=== PATIENT | male | born 1935 | race Caucasian/White ===

== ENCOUNTER 2018-02-13 11:34 | Outpatient (CLI) | payer OTHER ==
--- NOTE | 2018-02-13 15:02 | CT ---
EXAM: CT head without contrast HISTORY: Headache with history of stroke COMPARISON: None TECHNIQUE: Serial axial images of the brain were obtained from the skull base to the vertex without IV contrast. FINDINGS: The ventricles, cisterns and sulci demonstrate moderate generalized volume loss. The carbajal- white matter junction is maintained. There is no acute loss of the carbajal-white matter differentiation identified. There is scattered low attenuation in the periventricular white matter.No midline shift or mass is identified. There is no abnormal intra or extra-axial fluid collection. The paranasal s inuses and mastoid air cells are clear. The osseous calvarium is intact. IMPRESSION: 1. No acute intracranial abnormality or hemorrhage. 2. Moderate generalized volume loss and scattered microangiopathy. If further evaluation is clinically indicated, MRI may be obtained.
== END 2018-02-13 11:35 | disposition home or self-care (01) ==
LOC: RAD 11:34
PROVIDERS: ATTEND Internal Medicine
DX: R51 Headache (principal); Z86.73 Personal history of transient ischemic attack (TIA), and cerebral infarction without residual deficits

== ENCOUNTER 2018-03-01 11:52 | Outpatient (CLI) | payer OTHER ==
--- NOTE | 2018-03-01 14:05 | MRI ---
EXAM: MRI brain without and with IV contrast. DATE: 03/01/2018. HISTORY: Abnormal head CT. Headaches. TECHNIQUE: Sagittal T1W pre and postcontrast, axial T2W, axial FLAIR, axial T1W pre and postcontrast , axial DWI, coronal T1W postcontrast, and coronal T2W GRE sequences of the brain were obtained using 1.2 Ning magnet. CONTRAST: Omniscan - 15 ml IV. COMPARISON: CT head 13 February 2018. FINDINGS: The ventricles, cisterns, sulci and subarachnoid spaces are commensurately enlarged due to involutional change. No midline shift, mass effect or abnormal extra-axial fluid collection is appa rent. No acute infarct, hemorrhage or enhancing neoplasm is identified. No abnormal contrast enhanc ement is identified in the brain, meninges or dura. Narrow, confluent rim of T2W/FLAIR hyperintensit y is observed in the white matter abutting each lateral ventricle. The carbajal - white matter different iation is normal. Punctate areas of T2W GRE dark signal within each basal ganglia (right greater michelle n left) appear benign. No migration or diverticulation abnormality is identified. The amygdala, hip pocampus, and parahippocampal gyri are similar bilaterally. The 7th/8th cranial nerve complexes, cer ebellopontine angles, brainstem, and visible cervical spinal cord are normal. There is no cerebellar tonsillar ectopia. The pituitary gland is small in size, with CSF filling part of the pituitary fos sa. Corpus callosum is normal in size and configuration. Flow voids are present in the major intrac ranial arteries and in the dural venous sinuses. No aneurysm, AVM or dural venous sinus thrombosis i s apparent. Appearance of the lens of the left eye suggests prior cataract surgery. No other orbit abnormality is identified. A small number of inferior right mastoid air cells reveal a reticular pat tern of T2W bright, T1W intermediate signal without abnormal enhancement. Left mastoid air cells are unremarkable. There is no acute sinusitis. No neck mass or lymphadenopathy is detected. No calvar ial neoplasm or acute fracture is evident. IMPRESSIONS: 1. No acute infarct, hemorrhage, enhancing neoplasm or hydrocephalus. 2. 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 3. Minor, benign bilateral basal ganglia mineral deposition. 4. Mild/moderate cerebral and minor cerebellar atrophy. 5. Small pituitary gland - partially empty sella. 6. Minor right mastoid air cell mucosal disease.
== END 2018-03-01 11:53 | disposition home or self-care (01) ==
LOC: RAD 11:52
PROVIDERS: ATTEND Internal Medicine
DX: R93.0 Abnormal findings on diagnostic imaging of skull and head, not elsewhere classified (principal)

== ENCOUNTER 2021-10-04 14:47 | Observation (INO) ==
[2021-10-04] MEDS ORDERED: TYLENOL PO STA (15:08)
[2021-10-04] MEDS ORDERED: BOOSTRIX IM ONE (15:09)
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
[2021-10-04 15:34] LABS: BASOPHILS % (AUTO) 0.5 % (0.0-3.0); EOSINOPHILS # (AUTO) 0.1 K/ul (0.0-0.7); EOSINOPHILS % (AUTO) 1.1 % (0.0-7.0); HEMATOCRIT 41.3 % (42.0-52.0); HEMOGLOBIN 13.8 g/dl (14.0-18.0); IMMATURE GRANULOCYTE % (AUTO) 0.2 % (0.0-5.0); LYMPHOCYTES # (AUTO) 1.5 K/uL (0.60-3.4); LYMPHOCYTES % (AUTO) 23.3 (10.0-50.0); MEAN CORPUSCULAR HEMOGLOBIN 31.2 pg (27.0-31.0); MEAN CORPUSCULAR HGB CONC 33.4 (31.8-35.4); MEAN CORPUSCULAR VOLUME 93.4 fl (80.0-94.0); MONOCYTES # (AUTO) 0.6 K/uL (0.4-2.0); MONOCYTES % (AUTO) 10.3 (0-10); NEUTROPHILS % (AUTO) 64.6 % (42.2-75.2); PLATELET COUNT 122 10^3/uL (140-440); RDW COEFFICIENT OF VARIATION 13.2 % (11.6-14.8); RED BLOOD COUNT 4.42 10^6/ul (4.70-6.10); WHITE BLOOD COUNT 6.22 K/ul (4.2-10.2)
[2021-10-04 15:46] LABS: ALANINE AMINOTRANSFERASE 47.9 U/L (0-50); ALBUMIN 4.31 g/dL (3.5-5.0); ALKALINE PHOSPHATASE 92.2 U/L (56-119); ASPARTATE AMINO TRANSFERASE 45.8 U/L (17-59); BILIRUBIN,TOTAL 0.82 mg/dL (0.2-1.3); BLOOD UREA NITROGEN 28.9 mg/dL (9-20); CALCIUM 9.09 mg/dL (8.4-10.2); CHLORIDE 103.3 mmol/L (98-107); CREATININE 1.83 mg/dL (0.60-1.10); GLUCOSE 111.6 mg/dL (74-106); SODIUM 135.4 mmol/L (134.5-145); TOTAL PROTEIN 7.73 g/dL (6.3-8.2)
[2021-10-04 15:59] LABS: PROTHROMBIN TIME 30.7 SEC (9.3-11.0)
--- NOTE | 2021-10-04 16:10 | DI ---
EXAM: Radiographs, left elbow HISTORY: Left elbow injury. COMPARISON: None. TECHNIQUE: Three views. FINDINGS: Bone mineralization normal. No fracture or dislocation. Joint spaces maintained although there is mild marginal osteophyte formation at the elbow. Mild spurring off the medial humeral epic ondyle. There is a tiny olecranon spur. No erosions. No joint effusion or other focal soft tissue abnormality. IMPRESSION: No fracture or dislocation.
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
[2021-10-04] MEDS ORDERED: TYLENOL PO PRN (17:29)
[2021-10-04] MEDS ORDERED: SODIUM CHLORIDE 1,000 ML IV SCH (17:30)
[2021-10-04] MEDS ORDERED: NORCO 5-325 PO PRN (17:31)
[2021-10-04 17:54] LABS: BILIRUBIN,URINE Negative (NEGATIVE); CLARITY,URINE Clear (CLEAR); COLOR,URINE Yellow (YELLOW); GLUCOSE, URINE (UA) Negative (NEGATIVE); KETONES,URINE Negative (NEGATIVE); LEUKOCYTE ESTERASE ,URINE Negative (NEGATIVE); NITRITE,URINE Negative (NEGATIVE); PH,URINE 5.5 (5-9); PROTEIN,URINE Negative (NEGATIVE); URINE, BLOOD 1+ (NEGATIVE); UROBILINOGEN,URINE 0.2 (0.2)
[2021-10-04] MEDS ORDERED: LANOXIN PO SCH (18:00)
[2021-10-04 18:09] LABS: OPIATE SCREEN,URINE POSITIVE (NEGATIVE)
[2021-10-04 18:10] LABS: AMPHETAMINE SCREEN,URINE NEGATIVE (NEGATIVE); BARBITURATE SCREEN,URINE NEGATIVE (NEGATIVE); BENZODIAZEPINES SCREEN,URINE NEGATIVE (NEGATIVE); CANNABINOID SCREEN,URINE NEGATIVE (NEGATIVE); COCAIN SCREEN,URINE NEGATIVE (NEGATIVE); METHADONE URINE SCREEN NEGATIVE (NEGATIVE); METHAMPHETAMINES SCREEN,URINE NEGATIVE (NEGATIVE); OXYCODONE URINE SCREEN NEGATIVE (NEGATIVE); PHENCYCLIDINE SCREEN,URINE NEGATIVE (NEGATIVE); PROPOXYPHENE URINE SCREEN NEGATIVE (NEGATIVE); TRICYCLIC ANTIDEPRESSANTS URIN NEGATIVE (NEGATIVE)
[2021-10-04 18:12] LABS: URINE RBC, MICROSCOPIC 0-2 (0-2)
[2021-10-04 18:13] LABS: MUCUS,URINE 1+ (NOT PRESENT)
[2021-10-04] MEDS ORDERED: NORVASC PO SCH (21:00)
[2021-10-04] MEDS ORDERED: FLOMAX PO SCH (21:00)
[2021-10-04] MEDS ORDERED: LIPITOR PO SCH (21:00)
[2021-10-04] MEDS ORDERED: NEURONTIN PO SCH (21:00)
[2021-10-04 21:38] VITALS: BMI 25.0
[2021-10-04] MEDS: SODIUM CHLORIDE 1,000 ML IV SCH (22:11)
[2021-10-05 05:16] LABS: BASOPHILS % (AUTO) 0.4 % (0.0-3.0); EOSINOPHILS # (AUTO) 0.1 K/ul (0.0-0.7); EOSINOPHILS % (AUTO) 1.3 % (0.0-7.0); HEMATOCRIT 35.5 % (42.0-52.0); HEMOGLOBIN 12.1 g/dl (14.0-18.0); IMMATURE GRANULOCYTE % (AUTO) 0.2 % (0.0-5.0); LYMPHOCYTES # (AUTO) 1.4 K/uL (0.60-3.4); LYMPHOCYTES % (AUTO) 26.3 (10.0-50.0); MEAN CORPUSCULAR HEMOGLOBIN 31.7 pg (27.0-31.0); MEAN CORPUSCULAR HGB CONC 34.1 (31.8-35.4); MEAN CORPUSCULAR VOLUME 92.9 fl (80.0-94.0); MONOCYTES # (AUTO) 0.6 K/uL (0.4-2.0); MONOCYTES % (AUTO) 10.8 (0-10); NEUTROPHILS # (AUTO) 3.3 K/ul (2.0-6.9); PLATELET COUNT 102 10^3/uL (140-440); RDW COEFFICIENT OF VARIATION 13.2 % (11.6-14.8); RED BLOOD COUNT 3.82 10^6/ul (4.70-6.10); WHITE BLOOD COUNT 5.36 K/ul (4.2-10.2)
[2021-10-05 05:25] LABS: PROTHROMBIN TIME 23.5 SEC (9.3-11.0)
[2021-10-05 05:34] VITALS: BP 135/76; TEMP 97.7
[2021-10-05 05:55] LABS: ALANINE AMINOTRANSFERASE 37.3 U/L (0-50); ALBUMIN 3.66 g/dL (3.5-5.0); ALKALINE PHOSPHATASE 60.2 U/L (56-119); BILIRUBIN,TOTAL 1.23 mg/dL (0.2-1.3); BLOOD UREA NITROGEN 23.2 mg/dL (9-20); CALCIUM 8.23 mg/dL (8.4-10.2); CARBON DIOXIDE 19.8 mmol/L (22-30.0); CHLORIDE 109.6 mmol/L (98-107); CREATININE 1.5 mg/dL (0.60-1.10); POTASSIUM 4.47 mmol/L (3.5-5.1); TOTAL PROTEIN 6.43 g/dL (6.3-8.2)
[2021-10-05] MEDS: SODIUM CHLORIDE 1,000 ML IV SCH ×3 (08:50→09:52)
[2021-10-05] MEDS ORDERED: LANOXIN PO SCH (09:00)
[2021-10-05] MEDS ORDERED: COUMADIN PO SCH ×2 (09:00→17:00)
[2021-10-05] MEDS ORDERED: LOTENSIN PO SCH (09:00)
[2021-10-05] MEDS ORDERED: PROSCAR PO SCH (09:00)
--- NOTE | 2021-10-05 09:32 | PCM.PROG ---
Attending Provider: ATTENDING PROVIDER: Dr. SERGO AGUDELO This patient is seen with Lia Wolfe, Nurse Practitioner. DATE OF SERVICE: 10/05/21 SUBJECTIVE: This 85 year old /WHITE M was hospitalized 10/04/21. Denies any headache or change in vision. CT brain was normal. Minor abrasion left elbow. INR 2.3. Renal function stable. REVIEW OF SYSTEMS: CONSTITUTIONAL: No night sweats. No fatigue, malaise, lethargy. No fever or chills. HEENT: Eyes: No visual changes. No eye pain. No eye discharge. ENT: No runny nose. No epistaxis. No sinus pain. No odynophagia. No congestion. RESPIRATORY: No cough, no congestion. No hemoptysis. No shortness of breath. CARDIOVASCULAR: No angina symptoms. No CHF symptoms. No atypical chest pain for CAD. No palpitations. No orthopnea.. GASTROINTESTINAL: No abdominal pain. No nausea or vomiting. No diarrhea or constipation. No hematemesis. No hematochezia. GENITOURINARY: No urgency. No frequency. No dysuria. No hematuria. No obstr uctive symptoms. No discharge. No pain. No significant abnormal bleeding. MUSCULOSKELETAL: No musculoskeletal pain; no joint swelling. NEUROLOGICAL: Awake, alert, oriented to time, place and person. No headache. No neck pain. No syncope. No seizures. No dizziness. PSYCHIATRIC: Not anxious. No depression. No suicidal thoughts. No homicidal thoughts. SKIN: No rash. Bruising on scalp and left elbow. ENDOCRINE: No unexplained weight loss. No weight gain. HEMATOLOGIC/LYMPHATIC: No anemia. No purpura. No petechiae. No prolonged or excessive bleeding. No palpable lymph nodes. PHYSICAL EXAMINATION: GENERAL: The patient is awake, alert and oriented, sitting in bed in no distress. VITAL SIGNS: Temperature 97.7 F, Pulse 92, Respiratory Rate 16, BP 135/76, Pulse Ox 99% HEENT: Head normocephalic, atraumatic. Eyes: Extraocular muscles are intact. Pupils are equal, round and reactive to light and accommodation. Ears: No lesions. Nose appeared normal. Throat: No exudate or erythema. NECK: Supple. No JVD, no carotid bruit. No lymphadenopathy or thyromegaly. LUNGS: Diminished breath sounds. Clear to auscultation. Percussion note normal. Chest symmetrical. HEART: S1, S2, no S3. No murmurs. No cyanosis or clubbing. No ascites. Pulses: Dorsalis pedis and posterior tibial pulses +1 to +2 both sides. ABDOMEN: Soft. Non-tender. Bowel sounds active. No CVA tenderness. No mass felt. EXTREMITIES: No edema. Full range of motion of all extremities, equal. NEUROLOGIC: No focal deficit. Cranial nerves II through XII are grossly intact. No headache. No double vision. SKIN: Not dry. Intact. Turgor-normal. Hematoma back of scalp about 2 inches. Small superficial abrasion left elbow, no signs of infection. LYMPHATIC: No palpable lymph nodes/no lymphedema. MUSCULOSKELETAL: Normal joints with no swelling. Muscle tone is normal. LAB REVIEW: 10/05/21 05:00 10/05/21 05:00 10/05/21 05:00: Troponin I 0.026 10/05/21 05:00: Sodium 134.0 L, Potassium 4.47, Chloride 109.6 H, Carbon Dioxide 19.8 L D, Anion Gap 9.07, BUN 23.2 H, Creatinine 1.50 H, Estimated GFR (MDRD) 45.00, BUN/Creatinine Ratio 15.46, Glucose 111.0 H, Calcium 8.23 L, Total Bilirubin 1.23, AST 34.0, ALT 37.3, Alkaline Phosphatase 60.2 D, Total Protein 6.43, Albumin 3.66, Globulin 2.77, Albumin/Globulin Ratio 1.32 10/05/21 05:00: PT 23.5 H D, INR 2.35 10/05/21 05:00: WBC 5.36, RBC 3.82 L, Hgb 12.1 L, Hct 35.5 L, MCV 92.9, MCH 31.7 H, MCHC 34.1, RDW Coeff of Alcides 13.2, Plt Count 102 L, Immature Gran % (Auto) 0.2, Neut % (Auto) 61.0, Lymph % (Auto) 26.3, [place] % (Auto) 10.8 H, Eos % (Auto) 1.3, Baso % (Auto) 0.4, Neut # (Auto) 3.3, Lymph # (Auto) 1.4, [place] # (Auto) 0.6, Eos # (Auto) 0.1, Baso # (Auto) 0.0, Immature Gran # (Auto) 0.0 10/04/21 23:33: Troponin I 0.027 10/04/21 17:32: Urine Opiates Screen Positive H, Ur Oxycodone Screen Negative, Urine Methadone Screen Negative, Ur Propoxyphene Screen Negative, Ur Barbiturates Screen Negative, U Tricyclic Antidepress Negative, Ur Phencyclidine Scrn Negative, Ur Amphetamine Screen Negative, U Methamphetamines Scrn Negative, U Benzodiazepines Scrn Negative, Urine Cocaine Screen Negative, U Cannabinoids Screen Negative 10/04/21 17:32: Urine Color Yellow, Urine Clarity Clear, Urine pH 5.5, Ur Specific [place] 1.020, Urine Protein Negative, Urine Glucose (UA) Negative, Urine Ketones Negative, Urine Blood 1+ H, Urine Nitrite Negative, Urine Bilirubin Negative, Urine Urobilinogen 0.2, Ur Leukocyte Esterase Negative, Urine Microscopic RBC 0-2, Urine Microscopic WBC 5-10, Ur Squamous Epith Cells 5-10, Hyaline Casts 5-10, Urine Mucus 1+ 10/04/21 17:24: SARS CoV-2 RNA Rapid SREE Negative 10/04/21 15:24: Digoxin 0.61 L 10/04/21 15:24: Troponin I 0.020 10/04/21 15:24: Sodium 135.4, Potassium 5.00, Chloride 103.3, Carbon Dioxide 27.0, Anion Gap 10.10, BUN 28.9 H, Creatinine 1.83 H, Estimated GFR (MDRD) 36.00, BUN/Creatinine Ratio 15.79, Glucose 111.6 H, Calcium 9.09, Total Bilirubin 0.82, AST 45.8, ALT 47.9, Alkaline Phosphatase 92.2, Total Protein 7.73, Albumin 4.31, Globulin 3.42, Albumin/Globulin Ratio 1.26 10/04/21 15:24: PT 30.7 H, INR 3.11 10/04/21 15:24: WBC 6.22, RBC 4.42 L, Hgb 13.8 L, Hct 41.3 L, MCV 93.4, MCH 31.2 H, MCHC 33.4, RDW Coeff of Alcides 13.2, Plt Count 122 L, Immature Gran % (Auto) 0.2, Neut % (Auto) 64.6, Lymph % (Auto) 23.3, [place] % (Auto) 10.3 H, Eos % (Auto) 1.1, Baso % (Auto) 0.5, Neut # (Auto) 4.0, Lymph # (Auto) 1.5, [place] # (Auto) 0.6, Eos # (Auto) 0.1, Baso # (Auto) 0.0, Immature Gran # (Auto) 0.0 ASSESSMENT: Please see below. 1. Status post fall 2. Head injury 3. Left elbow abrasions 4. Chronic kidney disease 5. Atrial fibrillation on Coumadin PLAN: 1. Resume home medications 2. The patient would like to be discharged. We will discharge home with no changes. Plan and coordination of the patient's care discussed in the presence of Stamp Presser and nurse. SCRIBED BY: Shoshana ENNIS scribed while in presence of service performed by Dr. Agudelo/Lia Wolfe APRN on 10/05/21 ([id number])
[2021-10-05] MEDS ORDERED: SODIUM CHLORIDE 1,000 ML IV SCH ×3 (10:00)
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
--- NOTE | 2021-10-17 14:45 | PN ---
DATE OF SERVICE: 10/05/21 SUBJECTIVE: The patient was seen and examined with the Nurse Practitioner. The patient's condition is stable. Neurological status is stable. He is up and about. Oriented to time, place and person. INR is 2.2. The patient is going to be discharged home. Again the patient is high risk for fall. Family was explained about the patient's fall risk and how to avoid them. He was also explained about this. The patient is going to be discharged home. This is 24 hour observation. CONDITION: Stable. TIME SPENT: More than 30 minutes. Plan and coordination of the patient's care discussed in the presence of nurse. MARTINE
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
== END 2021-10-05 10:40 | disposition home or self-care (01) ==
LOC: ED 14:47 → MEDSURG A 19:36 → INTOOBSV 19:36 → MEDSURG A 20:45
PROVIDERS: ADMIT Internal Medicine; ATTEND Internal Medicine
DX: N17.9 Acute kidney failure, unspecified; Z51.81 Encounter for therapeutic drug level monitoring; Z79.899 Other long term (current) drug therapy; S00.01XA Abrasion of scalp, initial encounter; S50.312A Abrasion of left elbow, initial encounter; V18.0XXA Pedal cycle driver injured in noncollision transport accident in nontraffic accident, initial encounter; S00.90XA Unspecified superficial injury of unspecified part of head, initial encounter; Z79.01 Long term (current) use of anticoagulants; Y92.9 Unspecified place or not applicable; N18.30 Chronic kidney disease, stage 3 unspecified; Z20.822 Contact with and (suspected) exposure to COVID-19; I10 Essential (primary) hypertension; R79.1 Abnormal coagulation profile; R40.2411 Glasgow coma scale score 13-15, in the field [EMT or ambulance]; S20.411A Abrasion of right back wall of thorax, initial encounter; I48.21 Permanent atrial fibrillation; Y99.9 Unspecified external cause status

== ENCOUNTER 2023-06-21 09:38 | Inpatient (IN) ==
--- NOTE | 2023-06-21 10:25 | ED.PDOC ---
General ED Provider: Dr. SIMON BARRERA MD Chief Complaint: Weakness Stated Complaint: Patient is weak. He had a ground-level fall. Was unable to get up. Time Seen by Provider: 06/21/23 10:14 Information Source: Patient and Family Exam Limitations: Clinical condition Primary Care Provider: SERGO AGUDELO MD Nursing and Triage Documentation Reviewed and Agree: Yes Does Patient Take Opioids?: No Is Patient Opioid Naive?: Yes What is Opioid Naive?: *Opioid Naive implies the patient is not already taking opioids or not chronically receiving opioids on a daily basis. *PRN dosing is not "usually" associated with tolerance. *Patients are at higher risk of over-sedation and aspiration. Is Patient Opioid Tolerant?: No What is Opioid Tolerant?: *Opioid Tolerance implies less than the expected response to an opioid. *Acquired tolerance is defined by the patient taking 60mg of oral morphine daily (or equianalgesic dose of another opioid) for 1 week or more. *Often associated with chronic pain. *May take more than usual dose to achieve desired pain control. Cardiovascular Complaint Exam Hypertension Complaint/Exam Onset/Duration: Hypotension Symptoms Are: Still present Timing: Intermittent Reported B/P Prior to Arrival: Patient had a ground-level fall was unable to get up. He was weak. Aggravating: Reports None Alleviating: Reports None Associated Signs and Symptoms: Reports Headache and Weakness (The patient has underlying hypertension. However his blood pressure systolic now is 74.) Related History: Reports Other (He has had falling in the past but normally is able to cut his own grass.) Cardiac Risk Factors: Reports Hypertension Differential Diagnoses: Cerebral Bleed Review of Systems Review Of Systems Constitutional: Reports Malaise and Weakness Respiratory: Reports No symptoms Cardiac: Reports No symptoms GI: Reports No symptoms : Reports No symptoms Neurological: Reports Cognitive dysfunction and Headache All Other Systems: Reviewed and Negative [facility] Medical History Enlarged prostate N40.0 - Benign prostatic hyperplasia without lower urinary tract symptoms (ICD-10) Skin cancer C44.90 - Unspecified malignant neoplasm of skin, unspecified (ICD-10) Cataract H26.9 - Unspecified cataract (ICD-10) Family History FATHER Lung cancer BROTHER Prostate cancer Social History Smoking and tobacco status: Former smoker Passive smoking exposure: Yes How long ago did patient quit smokin years Second hand smoke exposure: Yes Smoking risk assessment performed: Yes Alcohol intake: former Counseling given: No Substance use type: does not use Special olya needs: No Agree to transfusion: Yes Adopted: No Caregiver/support person: No Foster care: No Household members: none Housing: house Lives independently: Yes Daycare: no daycare service: No correction: No History of recent travel: No Do you think of yourself as: straight/heterosexual Current gender identity: male Seatbelt use: always Drives intoxicated or rides with intoxicated company driver: No Water heater temperature set < 120 degrees: Yes Working smoke detector in home: Yes Fire extinguisher in home: Yes Carbon monoxide detector in home: Yes Surgical History History of cholecystectomy Z90.49 - Acquired absence of other specified parts of digestive tract (ICD- 10) Physical Exam Physical Exam Appearance: Reports Ill-appearing Ill-appearing: Moderate Pain Distress: Mild Eyes: Reports SUSHILA Respiratory: Reports Airway patent Cardiovascular: Reports RRR and Pulses normal GI/: Reports Soft Musculoskeletal: Reports Limited strength Skin: Reports Warm and Dry Interpretation EKG Interpretation EKG Interpretation By: ED Physician (EKG interpreted by me.) Rate: Normal Rhythm: Other (Atrial fibrillation irregular rate of 63.) Ectopy: None ST Segment: Normal Interpretation: No ST segment changes. Re-Evaluation Re-Evaluation Appearance: NAD Skin: Warm and Dry Neuro: Alert and Oriented X3 CV: RRR Re-Evaluation Appearance: NAD Skin: Warm and Dry Neuro: Alert and Oriented X3 Additional Comments: A-Fib with controlled rate. Physician Notification Case Discussed Physician Notified: MARIA A Rader Time of Notification: 12:00 Endorsed To/Discussed With: ANA MENDEZ Time of Discussion: 12:12 Admit/Transition Orders Entered by ED Provider: Yes Admit To: Inpatient, SCU and Other (TElemetry) Critical Care Note Critical Care Note Total Critical Care Time (mins): 90 (hypotension, transfering patient, and eventually admitting patient to telemetry.) Comments: Pt is aware that he needs a higher level of care. Pt is very aware of the risks of not being amenable to transfer to other hospital w nephrology services. He refuses to go outside of the immediate area. Course Course 06/23/23 04:58 06/23/23 04:58 Orders, Labs, Meds: Lab Review 06/21/23 06/21/23 06/21/23 10:32 10:34 10:35 WBC 7.23 RBC 3.31 L Hgb 10.4 L Hct 33.3 L MCV 100.6 H MCH 31.4 H MCHC 31.2 L RDW Coeff of Alcides 14.0 Plt Count 218 Immature Gran % (Auto) 0.6 Neut % (Auto) 72.9 Lymph % (Auto) 15.9 [place] % (Auto) 9.7 Eos % (Auto) 0.3 Baso % (Auto) 0.6 Neut # (Auto) 5.3 Lymph # (Auto) 1.2 [place] # (Auto) 0.7 Eos # (Auto) 0.0 Baso # (Auto) 0.0 Immature Gran # (Auto) 0.0 PT 47.9 H INR 4.90 H* Sodium 133.6 L Potassium 5.19 H Chloride 98.3 Carbon Dioxide 21.5 L Anion Gap 18.99 BUN 70.3 H* Creatinine 7.51 H* Estimated GFR (MDRD) 7.00 BUN/Creatinine Ratio 9.36 Glucose 161.7 H Calcium 8.85 Total Bilirubin 0.77 AST 46.2 ALT 51.8 H Alkaline Phosphatase 80.4 Total Creatine Kinase 153.8 CK-MB (CK-2) 4.070 H CK-MB (CK-2) % 2.6400 Troponin I 0.076 Total Protein 7.58 Albumin 3.87 Globulin 3.71 Albumin/Globulin Ratio 1.04 SARS CoV-2 RNA Rapid SREE Negative Orders Category Date Time Status ADMIT PATIENT INPATIENT .TO [facility] (MONITORED BED) ADMISSION 06/21/23 12:37 Completed EKG-(ED ONLY) Stat CARDIO 06/21/23 10:20 Completed TELEMETRY MONITORING TELE CARE 06/21/23 12:37 Completed CBC W/ AUTO DIFF Stat LAB 06/21/23 10:32 Completed COMPREHENSIVE METABOLIC PANEL Stat LAB 06/21/23 10:32 Completed COVID [SARS COV-2 RNA RAPID SREE] Stat LAB 06/21/23 10:35 Completed CREATINE KINASE Stat LAB 06/21/23 10:32 Completed TROPONIN I Stat LAB 06/21/23 10:32 Completed Sodium Chloride 0.9% [Sodium Chloride] 1,000 ml Meds 06/21/23 10:20 Discontinued IV BOLUS CHEST, 1V AP ONLY Stat RADS 06/21/23 10:[address] ABDOMEN/PELVIS WO CONTRAST Stat RADS 06/21/23 12:[address] HEAD W/O CONTRAST Stat RADS 06/21/23 10:37 Completed Medications Discontinued Medications Generic Name Dose Route Start Last Admin Trade Name Freq PRN Reason Stop Dose Admin Acetaminophen 650 mg 06/21/23 13:35 06/21/23 20:18 Acetaminophen 325 Mg Tablet PO 650 mg Q4H PRN Administration Mild Pain Hydrocodone Bitart/Acetaminophen 1 tab 06/22/23 09:55 06/24/23 04:59 Hydrocodone Bit/Acetaminophen 5/325 Mg Tablet PO 1 tab Q6HR PRN Administration Pain Atorvastatin Calcium 20 mg 06/21/23 21:00 06/23/23 20:08 Atorvastatin Calcium 20 Mg Tablet PO 20 mg BEDTIME NILES Administration Digoxin 125 mcg 06/21/23 15:30 06/22/23 14:30 Digoxin 125 Mcg Tablet PO 125 mcg [id number] NILES Administration Docusate Sodium 100 mg 06/23/23 11:01 06/23/23 13:43 Docusate Sodium 100 Mg Capsule PO 100 mg BID PRN Administration Constipation Donepezil HCl 10 mg 06/21/23 17:00 06/23/23 17:59 Donepezil Hcl 10 Mg Tablet PO 10 mg QPM NILES Administration Escitalopram Oxalate 20 mg 06/22/23 09:00 06/24/23 08:00 Escitalopram Oxalate 10 Mg Tablet PO 20 mg DAILY NILES Administration Gabapentin 300 mg 06/21/23 17:00 06/23/23 17:59 Gabapentin 300 Mg Capsule PO 300 mg QPM NILES Administration Sodium Chloride 1,000 mls @ 1,000 mls/hr 06/21/23 10:20 06/21/23 16:03 Sodium Chloride IV 06/21/23 11:19 Infused BOLUS ONE Infusion Sodium Chloride 1,000 mls @ 100 mls/hr 06/21/23 14:00 06/21/23 16:04 Sodium Chloride IV Not Given .Q10H NILES Sodium Chloride 1,000 mls @ 75 mls/hr 06/21/23 15:09 06/23/23 12:40 Sodium Chloride IV Infused .[id number] NILES Infusion Insulin Human Lispro 0 unit 06/21/23 15:24 Insulin Lispro 100 Unit/Ml Vial SUBCUT PRN PRN Hyperglycemia Protocol Memantine 10 mg 06/21/23 21:00 06/23/23 20:08 Memantine Hcl 10 Mg Tablet PO 10 mg BEDTIME NILES Administration Ondansetron HCl 4 mg 06/21/23 13:35 Ondansetron Hcl/Pf 4 Mg/2 Ml Sdv IVP Q6H PRN Nausea / Vomiting Polyethylene Glycol 17 gm 06/22/23 19:12 Polyethylene Glycol 17 Gm Powd.Pack PO DAILY PRN Constipation Vital Signs: Temp Pulse Resp BP Pulse Ox 06/21/23 09:41 97.7 F 60 18 72/49 L 95 GERONIMO Risk Score GERONIMO Risk Score: Risk Score Odds of by 30D 0 0.1 (0.1-0.2) 1 0.3 (0.2-0.3) 2 0.4 (0.3-0.5) 3 0.7 (0.6-0.9) 4 1.2 (1.0-1.5) 5 2.2 (1.9-2.6) 6 3.0 (2.5-3.6) 7 4.8 (3.8-6.1) Physician Progress Note: [500cc/hr of NS SBP went from 74 to 89. Decreased fluids after 500cc to 125cc/hr. patient has renal failure. He is admitted for observation.] Discharge Plan Discharge Patient Disposition: ADMITTED INPATIENT Discharge Problem: Acute kidney failure Did you review [place] [employer]U[place] for ALL controlled substances?: Not Applicable ED Provider: SIMON BARRERA Condition: Poor
[2023-06-21 10:37] LABS: BASOPHILS % (AUTO) 0.6 % (0.0-3.0); EOSINOPHILS % (AUTO) 0.3 % (0.0-7.0); HEMATOCRIT 33.3 % (42.0-52.0); HEMOGLOBIN 10.4 g/dl (14.0-18.0); IMMATURE GRANULOCYTE % (AUTO) 0.6 % (0.0-5.0); LYMPHOCYTES # (AUTO) 1.2 K/uL (0.60-3.4); LYMPHOCYTES % (AUTO) 15.9 (10.0-50.0); MEAN CORPUSCULAR HEMOGLOBIN 31.4 pg (27.0-31.0); MEAN CORPUSCULAR HGB CONC 31.2 (31.8-35.4); MEAN CORPUSCULAR VOLUME 100.6 fl (80.0-94.0); MONOCYTES # (AUTO) 0.7 K/uL (0.4-2.0); MONOCYTES % (AUTO) 9.7 (0-10); NEUTROPHILS # (AUTO) 5.3 K/ul (2.0-6.9); NEUTROPHILS % (AUTO) 72.9 % (42.2-75.2); PLATELET COUNT 218 10^3/uL (140-440); RED BLOOD COUNT 3.31 10^6/ul (4.70-6.10); WHITE BLOOD COUNT 7.23 K/ul (4.2-10.2)
[2023-06-21 10:49] LABS: ALANINE AMINOTRANSFERASE 51.8 U/L (0-50); ALBUMIN 3.87 g/dL (3.5-5.0); ALKALINE PHOSPHATASE 80.4 U/L (56-119); ASPARTATE AMINO TRANSFERASE 46.2 U/L (17-59); BILIRUBIN,TOTAL 0.77 mg/dL (0.2-1.3); CALCIUM 8.85 mg/dL (8.4-10.2); CARBON DIOXIDE 21.5 mmol/L (22-30.0); CHLORIDE 98.3 mmol/L (98-107); CREATINE KINASE 153.8 U/L (55-170); GLUCOSE 161.7 mg/dL (74-106); POTASSIUM 5.19 mmol/L (3.5-5.1); SODIUM 133.6 mmol/L (134.5-145); TOTAL PROTEIN 7.58 g/dL (6.3-8.2)
[2023-06-21 10:54] LABS: SARS COV-2 RNA RAPID NAAT NEGATIVE (NEGATIVE)
[2023-06-21 10:58] LABS: BLOOD UREA NITROGEN 70.3 mg/dL (9-20)
[2023-06-21 10:59] LABS: CREATININE 7.51 mg/dL (0.60-1.10)
[2023-06-21 11:01] LABS: TROPONIN I 0.076 ng/ml (0.0000-0.120)
[2023-06-21 11:04] LABS: CREATINE KINASE MB 4.07 ng/ml (0.0-2.38)
--- NOTE | 2023-06-21 11:05 | DI ---
EXAM: CHEST RADIOGRAPH TECHNIQUE: Single frontal chest radiograph. COMPARISON: 05/16/2021 HISTORY: Hypotension FINDINGS: The heart and mediastinum are stable. A small right greater than left pleural effusions are identifi ed, with adjacent compressive atelectasis. No pneumothorax. No acute abnormality of the bones or soft tissues is identified. IMPRESSION: New small pleural effusions are identified, with bibasilar atelectasis.
[2023-06-21] MEDS: SODIUM CHLORIDE 1,000 ML IV ONE (11:10)
--- NOTE | 2023-06-21 11:51 | CT ---
EXAMINATION: HEAD CT WITHOUT CONTRAST HISTORY: Fall. Altered mental status. TECHNIQUE: Noncontrast CT of the brain was performed with images acquired from skull base to vertex. 2-D coronal and sagittal reformatted images were obtained from the axial source images. Contrast Dose: None. CT Dose Reduction Techniques Performed: Yes. COMPARISON: The 03/18/2023 FINDINGS: Topogram demonstrates no significant abnormality. Intraparenchymal hemorrhage: None. Parenchyma: Normal carbajal-white differentiation. No mass effect or midline shift. Chronic: Decreased attenuation of the periventricular white matter consistent with microangiopathic i schemic change. Extra-axial spaces and basal cisterns: Normal. Ventricles: Enlargement of the ventricles and subarachnoid spaces consistent with atrophy. Paranasal sinuses and mastoid air cells: Visualized portions of paranasal sinuses are clear. Mastoid air cells are clear. Orbits: Normal visualized portions. Sella/Skull Base: Normal. Other: Scalp and visualized soft tissues are normal. Calvarium is normal. IMPRESSION: 1. No acute intracranial process. 2. 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 All CT scans are performed using dose optimization techniques as appropriate to the performed exam an d include at least one of the following: Automated exposure control, adjustment of the mA and/or kV according t o size, and the use of iterative reconstruction technique.
--- NOTE | 2023-06-21 12:37 | ED.PDOC ---
General ED Provider: Dr. SIMON BARRERA MD Chief Complaint: Weakness Stated Complaint: Altered mental status, weakness Time Seen by Provider: 06/21/23 10:14 Information Source: Patient and Family Primary Care Provider: SERGO AGUDELO MD Nursing and Triage Documentation Reviewed and Agree: Yes What is Opioid Naive?: *Opioid Naive implies the patient is not already taking opioids or not chronically receiving opioids on a daily basis. *PRN dosing is not "usually" associated with tolerance. *Patients are at higher risk of over-sedation and aspiration. What is Opioid Tolerant?: *Opioid Tolerance implies less than the expected response to an opioid. *Acquired tolerance is defined by the patient taking 60mg of oral morphine daily (or equianalgesic dose of another opioid) for 1 week or more. *Often associated with chronic pain. *May take more than usual dose to achieve desired pain control. Review of Systems Review Of Systems Constitutional: Reports Malaise and Weakness [facility] Medical History Enlarged prostate N40.0 - Benign prostatic hyperplasia without lower urinary tract symptoms (ICD-10) Skin cancer C44.90 - Unspecified malignant neoplasm of skin, unspecified (ICD-10) Cataract H26.9 - Unspecified cataract (ICD-10) Family History FATHER Lung cancer BROTHER Prostate cancer Social History Smoking and tobacco status: Former smoker Passive smoking exposure: Yes How long ago did patient quit smokin years Second hand smoke exposure: Yes Smoking risk assessment performed: Yes Alcohol intake: former Counseling given: No Substance use type: does not use Special olya needs: No Agree to transfusion: Yes Adopted: No Caregiver/support person: No Foster care: No Household members: none Housing: house Lives independently: Yes Daycare: no daycare service: No MCFP: No History of recent travel: No Do you think of yourself as: straight/heterosexual Current gender identity: male Seatbelt use: always Drives intoxicated or rides with intoxicated chain saw driver: No Water heater temperature set < 120 degrees: Yes Working smoke detector in home: Yes Fire extinguisher in home: Yes Carbon monoxide detector in home: Yes Surgical History History of cholecystectomy Z90.49 - Acquired absence of other specified parts of digestive tract (ICD- 10) Physical Exam Physical Exam Appearance: Reports Well-appearing Respiratory: Reports Airway patent and Breath sounds clear Cardiovascular: Reports Irregular rhythm Musculoskeletal: Reports Limited strength Course Course 06/21/23 10:32 06/21/23 10:32 Orders, Labs, Meds: Lab Review 06/21/23 06/21/23 10:32 10:35 WBC 7.23 RBC 3.31 L Hgb 10.4 L Hct 33.3 L MCV 100.6 H MCH 31.4 H MCHC 31.2 L RDW Coeff of Alcides 14.0 Plt Count 218 Immature Gran % (Auto) 0.6 Neut % (Auto) 72.9 Lymph % (Auto) 15.9 [place] % (Auto) 9.7 Eos % (Auto) 0.3 Baso % (Auto) 0.6 Neut # (Auto) 5.3 Lymph # (Auto) 1.2 [place] # (Auto) 0.7 Eos # (Auto) 0.0 Baso # (Auto) 0.0 Immature Gran # (Auto) 0.0 Sodium 133.6 L Potassium 5.19 H Chloride 98.3 Carbon Dioxide 21.5 L Anion Gap 18.99 BUN 70.3 H* Creatinine 7.51 H* Estimated GFR (MDRD) 7.00 BUN/Creatinine Ratio 9.36 Glucose 161.7 H Calcium 8.85 Total Bilirubin 0.77 AST 46.2 ALT 51.8 H Alkaline Phosphatase 80.4 Total Creatine Kinase 153.8 CK-MB (CK-2) 4.070 H CK-MB (CK-2) % 2.6400 Troponin I 0.076 Total Protein 7.58 Albumin 3.87 Globulin 3.71 Albumin/Globulin Ratio 1.04 SARS CoV-2 RNA Rapid SREE Negative Orders Category Date Time Status ABG DRAW REQUEST Stat CARDIO 06/21/23 10:26 Ordered EKG-(ED ONLY) Stat CARDIO 06/21/23 10:20 Completed ABG COOX Stat LAB 06/21/23 10:26 Ordered CBC W/ AUTO DIFF Stat LAB 06/21/23 10:32 Completed COMPREHENSIVE METABOLIC PANEL Stat LAB 06/21/23 10:32 Completed COVID [SARS COV-2 RNA RAPID SREE] Stat LAB 06/21/23 10:35 Completed CREATINE KINASE Stat LAB 06/21/23 10:32 Completed TROPONIN I Stat LAB 06/21/23 10:32 Completed Sodium Chloride 0.9% [Sodium Chloride] 1,000 ml Meds 06/21/23 10:20 Discontinued IV BOLUS CHEST, 1V AP ONLY Stat RADS 06/21/23 10:[address] HEAD W/O CONTRAST Stat RADS 06/21/23 10:37 Completed Medications Discontinued Medications Generic Name Dose Route Start Last Admin Trade Name Freq PRN Reason Stop Dose Admin Sodium Chloride 1,000 mls @ 1,000 mls/hr 06/21/23 10:20 06/21/23 11:10 Sodium Chloride IV 06/21/23 11:19 125 mls/hr BOLUS ONE Infusion Vital Signs: Temp Pulse Resp BP Pulse Ox 06/21/23 09:41 97.7 F 60 18 72/49 L 95 Discharge Plan Discharge Patient Disposition: ADMITTED INPATIENT Discharge Problem: Acute kidney failure Prescriptions: No Action spironolactone 25 mg tablet 25 mg PO Q OTHER DAY Qty: 45 1RF epinephrine 0.3 mg/0.3 mL auto-injector 0.3 mg IM ONCE PRN (Reason: hypersensitivity reaction) Qty: 2 0RF atorvastatin [Lipitor] 20 mg tablet 20 mg PO BEDTIME Qty: 90 1RF warfarin 4 mg tablet 4 mg PO 6XW Qty: 90 1RF escitalopram oxalate [Lexapro] 20 mg tablet 20 mg PO QDAY Qty: 90 1RF hydrocodone-acetaminophen 5-325 mg tablet 1 tab PO BID PRN (Reason: pain) Qty: 60 0RF furosemide 20 mg tablet 20 mg PO QDAY Qty: 90 1RF donepezil 10 mg tablet See Rx Instructions .ROUTE .COMPLEX Qty: 90 1RF Dose Instruction: TAKE 1 TABLET BY MOUTH DAILY Rx Instructions: TAKE 1 TABLET BY MOUTH DAILY benazepril 40 mg tablet 40 mg PO QDAY digoxin 125 mcg (0.125 mg) tablet 0.125 mg PO QDAY Rx Instructions: Take 1 Tablet Sunday, Sunday, Sunday, and Sunday finasteride 5 mg tablet 5 mg PO QDAY gabapentin 300 mg capsule 300 mg PO QDAY tamsulosin 0.4 mg capsule 0.4 mg PO QDAY memantine [Namenda] 10 mg tablet 10 mg PO QHS Qty: 30 2RF Did you review [place] [employer] OPERATOR for ALL controlled substances?: Not Applicable ED Provider: SIMON BARRERA Physician Progress Note: [Patient aware of inability to transfer in the middle immediate local area. He refuses to go outside of that area though. He is aware that this could cause further injury and/or .]
--- NOTE | 2023-06-21 13:34 | PCM ---
Date of Service Date Seen by Provider: 06/21/23 Time Seen by Provider: 13:30 Admit Day/Time Admission Date: 06/21/23 Admission Time: 12:37 Reason for Admission Chief Complaint: HYPOTENSION,KIDNEY FAILURE Hospital Provider Hospital Provider: ANA MENDEZ PA-C, [facility] [place] [facility] Primary Care Physician: SERGO HUDDLESTON MD History of Present Illness History of Present Illness: Patient is an 87 year old male from home with pmhx of CKD, depression, chronic anticoagulation on warfarin, hx of CVA, DMT2, COPD, CHF, hypertension, a fib who presented to the ER for frequent falls and low blood pressure as directed by his PCP. Patient hasn't been drinking much lately. He takes multiple diuretics. He states he fell at home and has multiple skin tears. In the ER he was found to have a Cr of 7.5 (baseline 2) and BUN 70. He was offered transfer, [facility] are full. He ultimately decided with his daughter/POA that he did not want to be transferred. He and daughter understand the limitations of this facility regarding his renal function. Patient was started on fluids and admitted to med surg. Once on the floor ct a/p was ordered to r/o obstructive pathology. It showed large pericardial effusion, pleural effusions, mild ascites but no obstructive renal pathology. Case Discussed With Case Discussed With: Patient's case was discussed with the ER Physicians, Dr. Aguilar. [facility] Medical History Enlarged prostate N40.0 - Benign prostatic hyperplasia without lower urinary tract symptoms (ICD-10) Skin cancer C44.90 - Unspecified malignant neoplasm of skin, unspecified (ICD-10) Cataract H26.9 - Unspecified cataract (ICD-10) Surgical History History of cholecystectomy Z90.49 - Acquired absence of other specified parts of digestive tract (ICD- 10) Family History FATHER Lung cancer BROTHER Prostate cancer Social History Smoking and tobacco status: Former smoker Passive smoking exposure: Yes How long ago did patient quit smokin years Second hand smoke exposure: Yes Smoking risk assessment performed: Yes Alcohol intake: former Counseling given: No Substance use type: does not use Special olya needs: No Agree to transfusion: Yes Adopted: No Caregiver/support person: No Foster care: No Household members: none Housing: house Lives independently: Yes Daycare: no daycare service: No halfway: No History of recent travel: No Do you think of yourself as: straight/heterosexual Current gender identity: male Seatbelt use: always Drives intoxicated or rides with intoxicated charter and tour bus driver: No Water heater temperature set < 120 degrees: Yes Working smoke detector in home: Yes Fire extinguisher in home: Yes Carbon monoxide detector in home: Yes Allergies Allergies Allergy/AdvReac Type Severity Reaction Status Date / Time adhesive tape AdvReac Unknown Rash Verified 06/21/23 09:13 BEE STING AdvReac Anaphylaxis Uncoded 06/21/23 09:13 Current Medications Home Medications spironolactone 25 mg tablet 25 mg PO Q OTHER DAY #45 tabs 11/13/22 [Rx Confirmed 06/21/23 Last Taken Unknown] epinephrine 0.3 mg/0.3 mL injection, auto-injector 0.3 mg (0.3 mL) IM ONCE PRN hypersensitivity reaction #2 ea 12/25/22 [Rx Confirmed 06/21/23 Last Taken Unknown] atorvastatin 20 mg tablet (Lipitor) 20 mg PO BEDTIME #90 tabs 02/12/23 [Rx Confirmed 06/21/23 Last Taken Unknown] warfarin 4 mg tablet 4 mg PO 6XW #90 tabs 02/12/23 [Rx Confirmed 06/21/23 Last Taken Unknown] escitalopram oxalate 20 mg tablet (Lexapro) 20 mg PO QDAY #90 tabs 03/01/23 [Rx Confirmed 06/21/23 Last Taken Unknown] benazepril 40 mg tablet 40 mg PO QDAY 04/26/23 [History Confirmed 06/21/23 Last Taken Unknown] digoxin 125 mcg (0.125 mg) tablet 0.125 mg PO QDAY 04/26/23 [History Confirmed 06/21/23 Last Taken Unknown] finasteride 5 mg tablet 5 mg PO QDAY 04/26/23 [History Confirmed 06/21/23 Last Taken Unknown] gabapentin 300 mg capsule 300 mg PO QDAY 04/26/23 [History Confirmed 06/21/23 Last Taken Unknown] memantine 10 mg tablet (Namenda) 10 mg PO QHS #30 tabs 04/26/23 [Rx Confirmed 06/21/23 Last Taken Unknown] tamsulosin 0.4 mg capsule 0.4 mg PO QDAY 04/26/23 [History Confirmed 06/21/23 Last Taken Unknown] furosemide 20 mg tablet 20 mg PO QDAY #90 tabs 05/21/23 [Rx Confirmed 06/21/23 Last Taken Unknown] hydrocodone 5 mg-acetaminophen 325 mg tablet 1 tab PO BID PRN pain #60 tabs 05/21/23 [Rx Confirmed 06/21/23 Last Taken Unknown] donepezil 10 mg tablet See Rx Instructions .Route .COMPLEX #90 tabs 06/18/23 [Rx Confirmed 06/21/23 Last Taken Unknown] Home Acetaminophen (Acetaminophen 325 Mg Tablet) 650 mg PO Q4H PRN PRN Reason: Mild Pain Last Admin: 06/21/23 20:18 Dose: 650 mg Hydrocodone Bitart/Acetaminophen (Hydrocodone Bit/Acetaminophen 5/325 Mg Tablet) 1 tab PO Q6HR PRN PRN Reason: Pain Last Admin: 06/22/23 10:43 Dose: 1 tab Atorvastatin Calcium (Atorvastatin Calcium 20 Mg Tablet) 20 mg PO BEDTIME [facility] Last Admin: 06/21/23 20:18 Dose: 20 mg Digoxin (Digoxin 125 Mcg Tablet) [facility] Last Admin: 06/21/23 15:48 Dose: Not Given Donepezil HCl (Donepezil Hcl 10 Mg Tablet) 10 mg PO QPM [facility] Last Admin: 06/21/23 16:33 Dose: 10 mg Escitalopram Oxalate (Escitalopram Oxalate 10 Mg Tablet) 20 mg PO DAILY [facility] Last Admin: 06/22/23 08:45 Dose: 20 mg Gabapentin (Gabapentin 300 Mg Capsule) 300 mg PO QPM [facility] Last Admin: 06/21/23 16:32 Dose: 300 mg Sodium Chloride (Sodium Chloride) 1,000 mls @ 75 mls/hr IV .[id number] [facility] Last Admin: 06/22/23 05:05 Dose: 75 mls/hr Insulin Human Lispro (Insulin Lispro 100 Unit/Ml Vial) 0 unit SUBCUT PRN PRN; Protocol PRN Reason: Hyperglycemia Memantine (Memantine Hcl 10 Mg Tablet) 10 mg PO BEDTIME [facility] Last Admin: 06/21/23 20:18 Dose: 10 mg Ondansetron HCl (Ondansetron Hcl/Pf 4 Mg/2 Ml Sdv) 4 mg IVP Q6H PRN PRN Reason: Nausea / Vomiting Discontinued Medications Sodium Chloride (Sodium Chloride) 1,000 mls @ 1,000 mls/hr IV BOLUS ONE Stop: 06/21/23 11:19 Last Infusion: 06/21/23 16:03 Dose: Infused Sodium Chloride (Sodium Chloride) 1,000 mls @ 100 mls/hr IV .Q10H [facility] Last Admin: 06/21/23 16:04 Dose: Not Given Opioid Naive vs. Tolerant Does Patient Take Opioids?: No Is Patient Opioid Naive?: Yes What is Opioid Naive?: *Opioid Naive implies the patient is not already taking opioids or not chronically receiving opioids on a daily basis. *PRN dosing is not "usually" associated with tolerance. *Patients are at higher risk of over-sedation and aspiration. Is Patient Opioid Tolerant?: No What is Opioid Tolerant?: *Opioid Tolerance implies less than the expected response to an opioid. *Acquired tolerance is defined by the patient taking 60mg of oral morphine daily (or equianalgesic dose of another opioid) for 1 week or more. *Often associated with chronic pain. *May take more than usual dose to achieve desired pain control. Review of Systems Constitutional: Reports Fatigue and Weakness Head: Reports Normocephalic and Atraumatic Cardiovascular: Denies Chest pain or Chest Pressure Respiratory: Denies Shortness of air Gastrointestinal: Denies Nausea, Vomiting, Diarrhea, Abdominal pain or Melena Genitourinary: Denies Frequency Neurological: Reports Weakness and Other (+frequent falls) Physical examination Most Recent Vital Signs: Most Recent Vital Signs Temperature 97.7 F 06/21/23 09:41 Temperature Source Infrared 06/21/23 09:41 Pulse Rate 60 06/21/23 09:41 Respiratory Rate 18 06/21/23 09:41 Blood Pressure 72/49 L 06/21/23 09:41 O2 Sat by Pulse Oximetry 95 06/21/23 09:41 Height 5 ft 11 in 06/21/23 09:41 Weight 195 lb 06/21/23 09:41 Appearance: Positive No Apparent Distress and Alert and Oriented x3 Skin: Positive [place], Warm and Other (+skin tears to left elbow and right forearm ); Negative Rashes HEENT: Positive Normocephalic and Atraumatic; Negative Oral Mucous Moist Neck: Positive Supple and Midline Trachea Chest/Lungs: Positive Clear to Auscultation Bilaterally; Negative Rales, Rhonci or Wheezes Heart: Positive Other (+distant heart tones ) GI/: Positive Soft, Nontender, Bowel Sounds Normal and No Distention Extremities: Positive Other (+thickening of the skin of lower ext. +1 nonpitting edema ) Neurological: Positive Cranial Nerves Intact, Alert, Oriented and Other (+generalized weakness) Psychiatric: Positive Oriented x4, Appropriate Mood and Appropriate Affect Labs This Visit Labs This Visit: Labs This Visit 06/21/23 06/21/23 10:32 10:35 WBC 7.23 RBC 3.31 L Hgb 10.4 L Hct 33.3 L MCV 100.6 H MCH 31.4 H MCHC 31.2 L RDW Coeff of Alcides 14.0 Plt Count 218 Immature Gran % (Auto) 0.6 Neut % (Auto) 72.9 Lymph % (Auto) 15.9 [place] % (Auto) 9.7 Eos % (Auto) 0.3 Baso % (Auto) 0.6 Neut # (Auto) 5.3 Lymph # (Auto) 1.2 [place] # (Auto) 0.7 Eos # (Auto) 0.0 Baso # (Auto) 0.0 Immature Gran # (Auto) 0.0 Sodium 133.6 L Potassium 5.19 H Chloride 98.3 Carbon Dioxide 21.5 L Anion Gap 18.99 BUN 70.3 H* Creatinine 7.51 H* Estimated GFR (MDRD) 7.00 BUN/Creatinine Ratio 9.36 Glucose 161.7 H Calcium 8.85 Total Bilirubin 0.77 AST 46.2 ALT 51.8 H Alkaline Phosphatase 80.4 Total Creatine Kinase 153.8 CK-MB (CK-2) 4.070 H CK-MB (CK-2) % 2.6400 Troponin I 0.076 Total Protein 7.58 Albumin 3.87 Globulin 3.71 Albumin/Globulin Ratio 1.04 SARS CoV-2 RNA Rapid SREE Negative Imaging Imaging: EXAMINATION: HEAD CT WITHOUT CONTRAST HISTORY: Fall. Altered mental status. TECHNIQUE: Noncontrast CT of the brain was performed with images acquired from skull base to vertex. 2-D coronal and sagittal reformatted images were obtained from the axial source images. Contrast Dose: None. CT Dose Reduction Techniques Performed: Yes. COMPARISON: The 03/18/2023 FINDINGS: Topogram demonstrates no significant abnormality. Intraparenchymal hemorrhage: None. Parenchyma: Normal carbajal-white differentiation. No mass effect or midline shift. Chronic: Decreased attenuation of the periventricular white matter consistent with microangiopathic ischemic change. Extra-axial spaces and basal cisterns: Normal. Ventricles: Enlargement of the ventricles and subarachnoid spaces consistent with atrophy. Paranasal sinuses and mastoid air cells: Visualized portions of paranasal sinuses are clear. Mastoid air cells are clear. Orbits: Normal visualized portions. Sella/Skull Base: Normal. Other: Scalp and visualized soft tissues are normal. Calvarium is normal. IMPRESSION: 1. No acute intracranial process. 2. 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 \\ EXAM: CHEST RADIOGRAPH TECHNIQUE: Single frontal chest radiograph. COMPARISON: 05/16/2021 HISTORY: Hypotension FINDINGS: The heart and mediastinum are stable. A small right greater than left pleural effusions are identified, with adjacent compressive atelectasis. No pneumothorax. No acute abnormality of the bones or soft tissues is identified. IMPRESSION: New small pleural effusions are identified, with bibasilar atelectasis. EXAM: CHEST CT WITHOUT CONTRAST TECHNIQUE: CT acquisition of the chest from the thoracic inlet to the upper abdomen without IV contrast administration. 2-D coronal and sagittal reformatted images were obtained from the axial source images. IV Contrast: None. CT Dose Reduction Techniques Performed: Yes. COMPARISON: 03/18/2023 HISTORY: Congestive heart failure FINDINGS: CHEST: Lung Parenchyma and Airways: Bilateral compressive atelectasis is noted. No suspicious mass or consolidation. Pleural Space: Small to moderate layering pleural effusions are identified. No pneumothorax. Mediastinum: A moderate pericardial effusion is noted. The great vessels appear within normal limits. Lymph Nodes: No enlarged lymph nodes. Bones and Soft Tissues: There is no acute fracture, lytic lesion, or blastic lesion. Upper Abdomen: The liver surface appears mildly nodular. Trace perihepatic ascites is identified. IMPRESSION: 1. A moderate pericardial effusion and small to moderate layering pleural effusions are identified, consistent with serositis. 2. The liver surface appears mildly nodular. Correlation with liver enzymes for chronic liver disease is recommended. EXAM: CT ABDOMEN PELVIS WITHOUT INTRAVENOUS CONTRAST 06/21/2023. SAGITTAL AND CORONAL REFORMATTED IMAGES OBTAINED HISTORY: Acute renal failure COMPARISON: 03/18/2023 FINDINGS: There has been interval development of a large pericardial effusion. Further evaluation would be of benefit. Moderate bilateral pleural effusions partially visualized. Bibasilar consolidation may represent atelectasis and/or pneumonia. The liver shows no acute abnormality. Gallbladder has been removed. The adrenal glands and kidneys show no acute abnormality. There is no hydronephrosis. The spleen and pancreas show no acute abnormality. There is no bowel obstruction. Normal appendix. Extensive perivesicular stranding. Correlate clinically for cystitis. Diffuse mesenteric edema. Small quantity abdominal and pelvic ascites. Diffuse subcutaneous edema. No acute osseous abnormality. IMPRESSION: 1. Interval development of large pericardial effusion. Further evaluation would be of benefit. 2. Partially visualized moderate bilateral pleural effusions 3. Bilateral dependent consolidation may represent atelectasis and/or pneumonia. 4. Small quantity of abdominal and pelvic ascites. 5. Diffuse mesenteric and subcutaneous edema. 6. Status post cholecystectomy. 7. No urinary or bowel obstruction and normal appendix 8. Extensive perivesicular stranding. Correlate for cystitis. EKG Interpretation EKG Interpretation: Low voltage QRS noted. No ST changes. Review Statement Review Statement: I have independently reviewed and interpreted the labs/EKGs/imaging that were ordered by the ER provider. I have reviewed all outside records that are available currently in our EMR including imaging/notes/labs from previous visits. Plan Plan: 1. Acute renal failure with azotemia and anuria - Gently hydrate overnight with NS at 75 ml/hr. Monitor I&Os. 2. Pericardial effusion with hypotension - Echo ordered. Hold diuretics due to ARF. 3. Hyperkalemia - Mild, will improve with renal function, recheck in AM. 4. HFpEF - Holding diuretics in setting of ARF. Echo tomorrow. 5. Frequent falls - PTOT once able. 6. Supratherapeutic INR - Hold warfarin tonight. 7. Atrial fibrillation - Cont dig, hold metoprolol 8. DMT2 - Diabetic diet, humalog sliding scale, mild, accuchecks achs 9. Hyperlipidemia - Cont statin 10. BPH - Hold meds for now. DVT Prophylaxis: Holding warfarin due to elevated INR Time Spent: Greater than 80 minutes spent with patient, 50% of the time spent with this patient was devoted to counseling and coordination of care. [facility] minutes spent discussing advance care planning. Admit to: Inpatient Discussed Plan of Care with Dr. Alek Huddleston. Discussed in detail with patient and two daughters present (including POA) the predicament he is in with his acute renal failure and pericardial effusion/pleural effusions. We discussed pericardiocentesis indications and he is not interested in this procedure. He does not want dialysis if indicated. He prefers to stay at this facility despite our limitations and lack of resources. We discussed gently hydrating overnight to see if his kidneys will respond and he will start making urine. However, this could complicate his pericardial effusion and cause tamponade, respiratory failure, and even . Also suspect that his renal function is less likely just dehydration, and more likely multifactoral and a result of his pericardial effusion, hypotension, etc. He and daughters understand this. He is a DNR. If he were to go into tamponade or being in any distress, they would like for comfort measures to be initiated at that time. Prognosis: Guarded, poor
[2023-06-21] MEDS ORDERED: ZOFRAN 4 MG/2 ML IVP PRN (13:35)
[2023-06-21 13:47] VITALS: BMI 27.3
--- NOTE | 2023-06-21 13:56 | CT ---
EXAM: CT ABDOMEN PELVIS WITHOUT INTRAVENOUS CONTRAST 06/21/2023. SAGITTAL AND CORONAL REFORMATTED IM AGES OBTAINED HISTORY: Acute renal failure COMPARISON: 03/18/2023 FINDINGS: There has been interval development of a large pericardial effusion. Further evaluation wo uld be of benefit. Moderate bilateral pleural effusions partially visualized. Bibasilar consolidati on may represent atelectasis and/or pneumonia. The liver shows no acute abnormality. Gallbladder has been removed. The adrenal glands and kidneys show no acute abnormality. There is no hydronephrosis. The spleen and pancreas show no acute abnorm ality. There is no bowel obstruction. Normal appendix. Extensive perivesicular stranding. Correlate clini manolo for cystitis. Diffuse mesenteric edema. Small quantity abdominal and pelvic ascites. Diffuse subcutaneous edema. No acute osseous abnormality. IMPRESSION: 1. Interval development of large pericardial effusion. Further evaluation would be of benefit. 2. Partially visualized moderate bilateral pleural effusions 3. Bilateral dependent consolidation may represent atelectasis and/or pneumonia. 4. Small quantity of abdominal and pelvic ascites. 5. Diffuse mesenteric and subcutaneous edema. 6. Status post cholecystectomy. 7. No urinary or bowel obstruction and normal appendix 8. Extensive perivesicular stranding. Correlate for cystitis. All CT scans are performed using dose optimization techniques as appropriate to the performed exam an d include at least one of the following: Automated exposure control, adjustment of the mA and/or kV according t o size, and the use of iterative reconstruction technique.
[2023-06-21 14:03] LABS: PROTHROMBIN TIME 47.9 SEC (9.3-11.0)
--- NOTE | 2023-06-21 14:06 | CT ---
EXAM: CHEST CT WITHOUT CONTRAST TECHNIQUE: CT acquisition of the chest from the thoracic inlet to the upper abdomen without IV contra st administration. 2-D coronal and sagittal reformatted images were obtained from the axial source i mages. IV Contrast: None. CT Dose Reduction Techniques Performed: Yes. COMPARISON: 03/18/2023 HISTORY: Congestive heart failure FINDINGS: CHEST: Lung Parenchyma and Airways: Bilateral compressive atelectasis is noted. No suspicious mass or consol idation. Pleural Space: Small to moderate layering pleural effusions are identified. No pneumothorax. Mediastinum: A moderate pericardial effusion is noted. The great vessels appear within normal limits. Lymph Nodes: No enlarged lymph nodes. Bones and Soft Tissues: There is no acute fracture, lytic lesion, or blastic lesion. Upper Abdomen: The liver surface appears mildly nodular. Trace perihepatic ascites is identified. IMPRESSION: 1. A moderate pericardial effusion and small to moderate layering pleural effusions are identified, c onsistent with serositis. 2. The liver surface appears mildly nodular. Correlation with liver enzymes for chronic liver diseas e is recommended. All CT scans are performed using dose optimization techniques as appropriate to the performed exam an d include at least one of the following: Automated exposure control, adjustment of the mA and/or kV according t o size, and the use of iterative reconstruction technique.
[2023-06-21] MEDS ORDERED: HUMALOG SUBCUT PRN (15:24)
[2023-06-21] MEDS ORDERED: ARICEPT PO SCH (15:30)
[2023-06-21] MEDS: LANOXIN PO SCH (15:48)
[2023-06-21] MEDS: SODIUM CHLORIDE 1,000 ML IV SCH ×2 (16:04)
[2023-06-21] MEDS: NEURONTIN PO SCH (16:32)
[2023-06-21] MEDS: ARICEPT PO SCH (16:33)
[2023-06-21] MEDS: TYLENOL PO PRN (20:18)
[2023-06-21] MEDS: LIPITOR PO SCH (20:18)
[2023-06-21] MEDS: NAMENDA PO SCH (20:18)
[2023-06-21 22:02] LABS: CALCIUM 8.46 mg/dL (8.4-10.2); CARBON DIOXIDE 21.4 mmol/L (22-30.0); CHLORIDE 99.5 mmol/L (98-107); GLUCOSE 179.6 mg/dL (74-106); POTASSIUM 5.28 mmol/L (3.5-5.1); SODIUM 132.7 mmol/L (134.5-145)
[2023-06-21 22:12] LABS: BLOOD UREA NITROGEN 73.9 mg/dL (9-20); CREATININE 6.88 mg/dL (0.60-1.10)
[2023-06-22 05:35] LABS: BASOPHILS % (AUTO) 0.6 % (0.0-3.0); EOSINOPHILS % (AUTO) 0.4 % (0.0-7.0); HEMATOCRIT 34.6 % (42.0-52.0); HEMOGLOBIN 10.7 g/dl (14.0-18.0); IMMATURE GRANULOCYTE % (AUTO) 0.3 % (0.0-5.0); LYMPHOCYTES # (AUTO) 1.3 K/uL (0.60-3.4); LYMPHOCYTES % (AUTO) 18.5 (10.0-50.0); MEAN CORPUSCULAR HEMOGLOBIN 30.7 pg (27.0-31.0); MEAN CORPUSCULAR HGB CONC 30.9 (31.8-35.4); MEAN CORPUSCULAR VOLUME 99.4 fl (80.0-94.0); MONOCYTES # (AUTO) 0.6 K/uL (0.4-2.0); MONOCYTES % (AUTO) 8.1 (0-10); NEUTROPHILS % (AUTO) 72.1 % (42.2-75.2); PLATELET COUNT 244 10^3/uL (140-440); RDW COEFFICIENT OF VARIATION 14.2 % (11.6-14.8); RED BLOOD COUNT 3.48 10^6/ul (4.70-6.10); WHITE BLOOD COUNT 6.88 K/ul (4.2-10.2)
[2023-06-22 05:58] LABS: ALANINE AMINOTRANSFERASE 47.3 U/L (0-50); ALBUMIN 3.84 g/dL (3.5-5.0); ALKALINE PHOSPHATASE 83.1 U/L (56-119); ASPARTATE AMINO TRANSFERASE 38.9 U/L (17-59); BILIRUBIN,TOTAL 0.76 mg/dL (0.2-1.3); CALCIUM 8.54 mg/dL (8.4-10.2); CARBON DIOXIDE 20.5 mmol/L (22-30.0); CHLORIDE 99.9 mmol/L (98-107); GLUCOSE 137.6 mg/dL (74-106); POTASSIUM 5.46 mmol/L (3.5-5.1); SODIUM 134.2 mmol/L (134.5-145); TOTAL PROTEIN 7.43 g/dL (6.3-8.2)
[2023-06-22 06:09] LABS: BLOOD UREA NITROGEN 74.9 mg/dL (9-20); CREATININE 7.22 mg/dL (0.60-1.10)
[2023-06-22 06:25] LABS: PROTHROMBIN TIME 56.2 SEC (9.3-11.0)
[2023-06-22] MEDS: LEXAPRO PO SCH (08:45)
[2023-06-22] MEDS: NORCO 5-325 PO PRN (10:43)
--- NOTE | 2023-06-22 12:25 | PCM.PROG ---
Date/Time Seen Date Seen by Provider: 06/22/23 Time Seen by Provider: 08:40 Provider Provider: [facility]EN[facility]Z [facility] Chief Complaint Chief Complaint: HYPOTENSION,KIDNEY FAILURE Subjective Subjective: Patient's BP mildly improved. Fluids still going at low rate. Discussed pressors with patient/daughter last night, they did not want to pursue that, just fluids. Discussed option of dialysis again today and what that would entail, patient is not interested. He'd like to go home but willing to stay another day for his daughters. Hospice has been brought up as well and is a very likely path if renal function does not improve. Objective Appearance: Positive No Apparent Distress, Alert and Oriented x3 and Other (+more lethargic today, less interactive, but answering questions appropriately ) Chest/Lungs: Positive Clear to Auscultation Bilaterally; Negative Rales, Rhonci or Wheezes Heart: Positive Other (+distant heart sounds ) GI/: Positive Soft, Bowel Sounds Normal, No Distention and Bowel Sounds Hyperactive; Negative Nontender Neurological: Positive Oriented and Other (+more lethargic today but still interacts. Able to follow simple commands. Very weak. ) Vital Signs Vital Signs: Vital Signs: Last 24 Hours 06/21/23 13:00 06/21/23 13:35 06/21/23 13:35 Temperature 97.4 F L Temperature Source Temporal Artery Scan Pulse Rate 79 Respiratory Rate 16 Blood Pressure Blood Pressure Mean Blood Pressure Left Arm 77/53 Blood Pressure Location Blood Pressure Position Supine O2 Sat by Pulse Oximetry 93 L Oxygen Delivery Method Room Air Room Air Height 6 ft Weight 201 lb 3 oz Telemetry Type Remote Telemetry Telemetry Monitoring Started Irregular Telemetry Rate (Approximate) Telemetry Heart Rate 62 EKG QRS Interval 0.08 Telemetry Strip Reading AFIB 06/21/23 15:48 06/21/23 18:00 06/21/23 19:00 Temperature 97.5 F L Temperature Source Temporal Artery Scan Pulse Rate 58 L 62 Respiratory Rate 18 Blood Pressure 106/66 Blood Pressure Mean 79 Blood Pressure Left Arm Blood Pressure Location Left Arm Blood Pressure Position Supine O2 Sat by Pulse Oximetry 98 Oxygen Delivery Method Room Air Height Weight Telemetry Type Remote Telemetry Telemetry Monitoring Continues Irregular Telemetry Rate (Approximate) 60'S Telemetry Heart Rate EKG QRS Interval 0.06 Telemetry Strip Reading A-FIB 06/21/23 20:00 02/08/24 21:34 06/22/23 01:00 Temperature 98 F Temperature Source Temporal Artery Scan Pulse Rate 69 Respiratory Rate 16 15 Blood Pressure 89/47 L Blood Pressure Mean 61 Blood Pressure Left Arm Blood Pressure Location Left Arm Blood Pressure Position Supine O2 Sat by Pulse Oximetry 91 L Oxygen Delivery Method Room Air Room Air Height Weight Telemetry Type Remote Telemetry Telemetry Monitoring Continues Irregular Telemetry Rate (Approximate) 60'S Telemetry Heart Rate EKG QRS Interval 0.06 Telemetry Strip Reading A-06/22/23 06:00 06/22/23 07:00 06/22/23 08:00 Temperature 97.8 F Temperature Source Temporal Artery Scan Pulse Rate 64 Respiratory Rate 19 18 Blood Pressure 137/60 Blood Pressure Mean 85 Blood Pressure Left Arm Blood Pressure Location Left Arm Blood Pressure Position Supine O2 Sat by Pulse Oximetry 96 Oxygen Delivery Method Nasal Cannula Room Air Height Weight Telemetry Type Remote Telemetry Telemetry Monitoring Continues Irregular Telemetry Rate (Approximate) 70-80 BPM Telemetry Heart Rate EKG QRS Interval 0.07 Telemetry Strip Reading A- 06/22/23 09:48 06/22/23 10:02 06/22/23 11:45 Temperature 97.6 F Temperature Source Tympanic Pulse Rate 63 Respiratory Rate 18 Blood Pressure 96/56 L 96/64 90/58 L Blood Pressure Mean 69 74 68 Blood Pressure Left Arm Blood Pressure Location Left Arm Left Arm Left Arm Blood Pressure Position Sitting Sitting Sitting O2 Sat by Pulse Oximetry 95 Oxygen Delivery Method Room Air Room Air Room Air Height Weight Telemetry Type Telemetry Monitoring Irregular Telemetry Rate (Approximate) Telemetry Heart Rate EKG QRS Interval Telemetry Strip Reading Lab Results Lab Results: Lab Results: Last 24 Hours 06/22/23 06/21/23 06/21/23 05:30 21:23 10:34 WBC 6.88 RBC 3.48 L Hgb 10.7 L Hct 34.6 L MCV 99.4 H MCH 30.7 MCHC 30.9 L RDW Coeff of Alcides 14.2 Plt Count 244 Immature Gran % (Auto) 0.3 Neut % (Auto) 72.1 Lymph % (Auto) 18.5 Wake % (Auto) 8.1 Eos % (Auto) 0.4 Baso % (Auto) 0.6 Neut # (Auto) 5.0 Lymph # (Auto) 1.3 Wake # (Auto) 0.6 Eos # (Auto) 0.0 Baso # (Auto) 0.0 Immature Gran # (Auto) 0.0 PT 56.2 H D 47.9 H INR 5.78 H* 4.90 H* Sodium 134.2 L 132.7 L Potassium 5.46 H 5.28 H Chloride 99.9 99.5 Carbon Dioxide 20.5 L 21.4 L Anion Gap 19.26 17.08 BUN 74.9 H* 73.9 H* Creatinine 7.22 H* 6.88 H* D Estimated GFR (MDRD) 7.00 8.00 BUN/Creatinine Ratio 10.37 10.74 Glucose 137.6 H 179.6 H Calcium 8.54 8.46 Total Bilirubin 0.76 AST 38.9 ALT 47.3 Alkaline Phosphatase 83.1 Total Protein 7.43 Albumin 3.84 Globulin 3.59 Albumin/Globulin Ratio 1.06 Additional Comments Additional Comments: I have independently reviewed and interpreted the labs/EKGs/imaging ordered during this hospital stay. I have reviewed outside records that are available in our EMR that pertain to medical stay including imaging/notes/labs from previous visits. Active Medications Active Medications: Medications Generic Name Dose Route Start Last Admin Trade Name Freq PRN Reason Stop Dose Admin Acetaminophen 650 mg 06/21/23 13:35 06/21/23 20:18 Acetaminophen 325 Mg Tablet PO 650 mg Q4H PRN Administration Mild Pain Hydrocodone Bitart/Acetaminophen 1 tab 06/22/23 09:55 06/22/23 10:43 Hydrocodone Bit/Acetaminophen 5/325 Mg Tablet PO 1 tab Q6HR PRN Administration Pain Atorvastatin Calcium 20 mg 06/21/23 21:00 06/21/23 20:18 Atorvastatin Calcium 20 Mg Tablet PO 20 mg BEDTIME NILES Administration Digoxin 125 mcg 06/21/23 15:30 06/21/23 15:48 Digoxin 125 Mcg Tablet PO Not Given [facility] Donepezil HCl 10 mg 06/21/23 17:00 06/21/23 16:33 Donepezil Hcl 10 Mg Tablet PO 10 mg QPM NILES Administration Escitalopram Oxalate 20 mg 06/22/23 09:00 06/22/23 08:45 Escitalopram Oxalate 10 Mg Tablet PO 20 mg DAILY NILES Administration Gabapentin 300 mg 06/21/23 17:00 06/21/23 16:32 Gabapentin 300 Mg Capsule PO 300 mg QPM NILES Administration Sodium Chloride 1,000 mls @ 75 mls/hr 06/21/23 15:09 06/22/23 05:05 Sodium Chloride IV 75 mls/hr .[id number] NILES Administration Insulin Human Lispro 0 unit 06/21/23 15:24 Insulin Lispro 100 Unit/Ml Vial SUBCUT PRN PRN Hyperglycemia Protocol Memantine 10 mg 06/21/23 21:00 06/21/23 20:18 Memantine Hcl 10 Mg Tablet PO 10 mg BEDTIME NILES Administration Ondansetron HCl 4 mg 06/21/23 13:35 Ondansetron Hcl/Pf 4 Mg/2 Ml Sdv IVP Q6H PRN Nausea / Vomiting Plan Plan: 1. Acute renal failure with azotemia and anuria - Gently hydrate with NS at 75 ml/hr. Monitor I&Os. 2. Pericardial effusion with hypotension - Hold diuretics due to ARF. Per Dr. Andrew Huddleston, pt has preserved LV function. Mild to moderate pericardial effusion. No tamponade. 3. Hyperkalemia - Mild, recheck in AM. 4. HFpEF - Holding diuretics in setting of ARF. Echo with preserved LV function. 5. Frequent falls - hold on PTOT for now until more medically stable 6. Supratherapeutic INR - Worsened. Continue to hold warfarin 7. Atrial fibrillation - Cont dig, hold metoprolol 8. DMT2 - Diabetic diet, humalog sliding scale, mild, accuchecks achs 9. Hyperlipidemia - Cont statin 10. BPH - Hold meds for now. DVT Prophylaxis: Holding warfarin due to elevated INR 2/8 Discussed in detail with patient and two daughters present (including POA) the predicament he is in with his acute renal failure and pericardial effusion/pleural effusions. We discussed pericardiocentesis indications and he is not interested in this procedure. He does not want dialysis if indicated. He prefers to stay at this facility despite our limitations and lack of resources. We discussed gently hydrating overnight to see if his kidneys will respond and he will start making urine. However, this could complicate his pericardial effusion and cause tamponade, respiratory failure, and even . Also suspect that his renal function is less likely just dehydration, and more likely multifactoral and a result of his pericardial effusion, hypotension, etc. He and daughters understand this. He is a DNR. If he were to go into tamponade or being in any distress, they would like for comfort measures to be initiated at that time. 06/22 Patient still not interested in any procedures, we will respect that decision. He is agreeable to stay one more day for gentle hydration to see if any improve in renal function. Bladder scanner shows about 90 mls in over 24 hours. We will rediscuss hospice options tomorrow. Prognosis: Guarded, poor Review Statement Review Statement: I have personally discussed and reviewed the patient's visit/currently labs/imaging/decision making with Dr. Huddleston, my supervising attending. Greater that 50 minutes spent with patient, 50% of the time spent with this patient was devoted to counseling and coordination of care.
--- NOTE | 2023-06-22 12:47 | ECHO2D ---
Date of Exam: 06/22/2023 Ordering Physician: PCP: DR. AGUDELO; HOSPITALIST: ANA MENDEZ NP Room #: 122 Reason for Echo: PERICARDIAL EFFUSION, HYPOTENSION, CONGESTIVE HEART FAILURE, COPD, LEFT VENTRICULAR HYPERTROPHY M-Mode Normal Adult Results LV Dimensions Normal Adult Results AoV Opening excursions >1.6 >1.6 LVEDD-base- 3.5-5.8 4.0 Ao root dimensions 2.0-3.7 3.4 LVESD-base- 3.1-4.6 L. Atrium dimensions 1.9-3.8 4.6 Post. Wall thickness 0.8-1.1 1.3 IV septum (thickness) 0.7-1.2 1.5 Post. Wall excursion 0.72-1.3 NORMAL Septal motion NORMAL Systolic motion R. Ventricular cavity 1.5-2.0 NORMAL LVEF 60% >60% Paradoxical septal wall motion NORMAL 2-D : 2-D M Mode Echocardiogram was performed using apical four chamber and left parasternal long and short axis views. ENLARGED EFT ATRIAL CAVITY. MODERATE PERICARDIAL EFFUSION. VALVES NORMAL. TAMPONADE. NORMAL LEFT VENTRICLE SIZE AND LEFT VENTRICULAR CONTRACTILITY. M-MODE: MV: NORMAL AV: NORMAL TV: NORMAL PV: NORMAL CHAMBER SIZE: ENLARGED LEFT ATRIAL CAVITY. WALL MOTION: NORMAL PERICARDIUM: NORMAL INTERPRETATION: 1. LEFT VENTRICULAR HYPERTROPHY WITH ENLARGED LEFT ATRIAL CAVITY. 2. MODERATE PERICARDIAL EFFUSION. 3. NO TAMPONADE. 4. VALVES NORMAL. 5. NORMAL LEFT VENTRICLE SIZE AND LEFT VENTRICULAR CONTRACTILITY. MTDD
[2023-06-22] MEDS ORDERED: MIRALAX PO PRN (19:12)
[2023-06-23 05:25] LABS: BASOPHILS % (AUTO) 0.4 % (0.0-3.0); EOSINOPHILS # (AUTO) 0.1 K/ul (0.0-0.7); EOSINOPHILS % (AUTO) 0.7 % (0.0-7.0); HEMOGLOBIN 10.2 g/dl (14.0-18.0); IMMATURE GRANULOCYTE % (AUTO) 0.3 % (0.0-5.0); LYMPHOCYTES # (AUTO) 1.4 K/uL (0.60-3.4); LYMPHOCYTES % (AUTO) 18.9 (10.0-50.0); MEAN CORPUSCULAR HEMOGLOBIN 30.7 pg (27.0-31.0); MEAN CORPUSCULAR HGB CONC 30.9 (31.8-35.4); MEAN CORPUSCULAR VOLUME 99.4 fl (80.0-94.0); MONOCYTES # (AUTO) 0.7 K/uL (0.4-2.0); MONOCYTES % (AUTO) 9.2 (0-10); NEUTROPHILS # (AUTO) 5.1 K/ul (2.0-6.9); NEUTROPHILS % (AUTO) 70.5 % (42.2-75.2); PLATELET COUNT 243 10^3/uL (140-440); RDW COEFFICIENT OF VARIATION 14.4 % (11.6-14.8); RED BLOOD COUNT 3.32 10^6/ul (4.70-6.10); WHITE BLOOD COUNT 7.16 K/ul (4.2-10.2)
[2023-06-23 05:46] LABS: ALANINE AMINOTRANSFERASE 35.7 U/L (0-50); ALBUMIN 3.46 g/dL (3.5-5.0); ALKALINE PHOSPHATASE 84.7 U/L (56-119); ASPARTATE AMINO TRANSFERASE 27.6 U/L (17-59); BILIRUBIN,TOTAL 0.64 mg/dL (0.2-1.3); CALCIUM 8.18 mg/dL (8.4-10.2); CARBON DIOXIDE 19.7 mmol/L (22-30.0); POTASSIUM 5.49 mmol/L (3.5-5.1); TOTAL PROTEIN 6.83 g/dL (6.3-8.2)
[2023-06-23 06:18] LABS: BLOOD UREA NITROGEN 78.3 mg/dL (9-20); CREATININE 7.6 mg/dL (0.60-1.10)
--- NOTE | 2023-06-23 10:58 | PCM.PROG ---
Date/Time Seen Date Seen by Provider: 06/23/23 Time Seen by Provider: 09:00 Provider Provider: ANA MENDEZ PA-C, [facility] Chief Complaint Chief Complaint: HYPOTENSION,KIDNEY FAILURE Subjective Subjective: Patient has made 150 cc of urine in past 48 hours. Renal function has worsened today. The patient verbalizes that he just wants to go home and he's ready to be reunited with his in [facility]. He seems almost excited regarding this. His family is at bedside and they're in agreement to consult hospice. Objective Appearance: Positive No Apparent Distress and Alert and Oriented x3 Chest/Lungs: Positive Clear to Auscultation Bilaterally; Negative Rales, Rhonci or Wheezes Heart: Positive RRR GI/: Positive Soft, Nontender, Bowel Sounds Normal and No Distention Neurological: Positive Cranial Nerves Intact, Alert, Oriented and Other (+very weak ) Vital Signs Vital Signs: Vital Signs: Last 24 Hours 06/22/23 11:45 06/22/23 13:00 06/22/23 14:00 Temperature 97.2 F L Temperature Source Tympanic Pulse Rate 63 Respiratory Rate 18 Blood Pressure 90/58 L 94/54 L Blood Pressure Mean 68 67 Blood Pressure Location Left Arm Left Arm Blood Pressure Position Sitting Sitting O2 Sat by Pulse Oximetry 95 Oxygen Delivery Method Room Air Room Air Height Weight Telemetry Type Remote Telemetry Telemetry Monitoring Continues Irregular Telemetry Rate (Approximate) 60-70 BPM EKG QRS Interval 0.06 Telemetry Strip Reading AFIB 06/22/23 14:30 06/22/23 17:28 06/22/23 19:00 Temperature 97.7 F Temperature Source Oral Pulse Rate 67 61 Respiratory Rate 18 Blood Pressure 94/62 Blood Pressure Mean 72 Blood Pressure Location Left Radial Artery Blood Pressure Position Supine O2 Sat by Pulse Oximetry 97 Oxygen Delivery Method Room Air Height Weight Telemetry Type Remote Telemetry Telemetry Monitoring Continues Irregular Telemetry Rate (Approximate) 70-80 BPM EKG QRS Interval 0.07 Telemetry Strip Reading AFIB 06/22/23 20:00 06/22/23 21:11 06/22/23 23:08 Temperature 97.6 F Temperature Source Temporal Artery Scan Pulse Rate 70 Respiratory Rate 18 Blood Pressure 88/58 L Blood Pressure Mean 68 Blood Pressure Location Left Arm Blood Pressure Position Supine O2 Sat by Pulse Oximetry 97 Oxygen Delivery Method Room Air Room Air Height 6 ft Weight 201 lb 3 oz Telemetry Type Telemetry Monitoring Irregular Telemetry Rate (Approximate) EKG QRS Interval Telemetry Strip Reading 06/23/23 01:00 06/23/23 02:00 06/23/23 05:17 Temperature 99.3 F 97.4 F L Temperature Source Temporal Artery Scan Temporal Artery Scan Pulse Rate 67 68 Respiratory Rate 16 18 Blood Pressure 85/53 L 84/57 L Blood Pressure Mean 63 66 Blood Pressure Location Left Arm Left Arm Blood Pressure Position Supine Supine O2 Sat by Pulse Oximetry 95 95 Oxygen Delivery Method Room Air Room Air Height Weight Telemetry Type Remote Telemetry Telemetry Monitoring Continues Irregular Telemetry Rate (Approximate) 60-70 BPM EKG QRS Interval 0.07 Telemetry Strip Reading afib 06/23/23 07:00 06/23/23 08:00 06/23/23 10:00 Temperature 97.3 F L Temperature Source Temporal Artery Scan Pulse Rate 74 Respiratory Rate 20 Blood Pressure 92/59 L Blood Pressure Mean 70 Blood Pressure Location Left Arm Blood Pressure Position Supine O2 Sat by Pulse Oximetry 95 Oxygen Delivery Method Room Air Room Air Height Weight Telemetry Type Remote Telemetry Telemetry Monitoring Continues Irregular Telemetry Rate (Approximate) 60-70 BPM EKG QRS Interval 0.08 Telemetry Strip Reading AFIB Lab Results Lab Results: Lab Results: Last 24 Hours 06/23/23 04:58 WBC 7.16 RBC 3.32 L Hgb 10.2 L Hct 33.0 L MCV 99.4 H MCH 30.7 MCHC 30.9 L RDW Coeff of Alcides 14.4 Plt Count 243 Immature Gran % (Auto) 0.3 Neut % (Auto) 70.5 Lymph % (Auto) 18.9 Yell % (Auto) 9.2 Eos % (Auto) 0.7 Baso % (Auto) 0.4 Neut # (Auto) 5.1 Lymph # (Auto) 1.4 Yell # (Auto) 0.7 Eos # (Auto) 0.1 Baso # (Auto) 0.0 Immature Gran # (Auto) 0.0 PT 50.0 H D INR 5.12 H* Sodium 133.0 L Potassium 5.49 H Chloride 103.0 Carbon Dioxide 19.7 L Anion Gap 15.79 BUN 78.3 H* Creatinine 7.60 H* Estimated GFR (MDRD) 7.00 BUN/Creatinine Ratio 10.30 Glucose 137.0 H Calcium 8.18 L Total Bilirubin 0.64 AST 27.6 ALT 35.7 Alkaline Phosphatase 84.7 Total Protein 6.83 Albumin 3.46 L Globulin 3.37 Albumin/Globulin Ratio 1.02 Additional Comments Additional Comments: I have independently reviewed and interpreted the labs/EKGs/imaging ordered during this hospital stay. I have reviewed outside records that are available in our EMR that pertain to medical stay including imaging/notes/labs from previous visits. Active Medications Active Medications: Medications Generic Name Dose Route Start Last Admin Trade Name Freq PRN Reason Stop Dose Admin Acetaminophen 650 mg 06/21/23 13:35 06/21/23 20:18 Acetaminophen 325 Mg Tablet PO 650 mg Q4H PRN Administration Mild Pain Hydrocodone Bitart/Acetaminophen 1 tab 06/22/23 09:55 06/23/23 08:55 Hydrocodone Bit/Acetaminophen 5/325 Mg Tablet PO 1 tab Q6HR PRN Administration Pain Atorvastatin Calcium 20 mg 06/21/23 21:00 06/22/23 20:57 Atorvastatin Calcium 20 Mg Tablet PO 20 mg BEDTIME NILES Administration Digoxin 125 mcg 06/21/23 15:30 06/22/23 14:30 Digoxin 125 Mcg Tablet PO 125 mcg [id number] NILES Administration Donepezil HCl 10 mg 06/21/23 17:00 06/22/23 16:10 Donepezil Hcl 10 Mg Tablet PO 10 mg QPM NILES Administration Escitalopram Oxalate 20 mg 06/22/23 09:00 06/23/23 08:20 Escitalopram Oxalate 10 Mg Tablet PO 20 mg DAILY NILES Administration Gabapentin 300 mg 06/21/23 17:00 06/22/23 16:10 Gabapentin 300 Mg Capsule PO 300 mg QPM NILES Administration Sodium Chloride 1,000 mls @ 75 mls/hr 06/21/23 15:09 06/23/23 05:22 Sodium Chloride IV 75 mls/hr .[id number] NILES Administration Insulin Human Lispro 0 unit 06/21/23 15:24 Insulin Lispro 100 Unit/Ml Vial SUBCUT PRN PRN Hyperglycemia Protocol Memantine 10 mg 06/21/23 21:00 06/22/23 20:57 Memantine Hcl 10 Mg Tablet PO 10 mg BEDTIME NILES Administration Ondansetron HCl 4 mg 06/21/23 13:35 Ondansetron Hcl/Pf 4 Mg/2 Ml Sdv IVP Q6H PRN Nausea / Vomiting Polyethylene Glycol 17 gm 06/22/23 19:12 Polyethylene Glycol 17 Gm Powd.Pack PO DAILY PRN Constipation Plan Plan: 1. Acute renal failure with azotemia and anuria 2. Pericardial effusion with hypotension 3. Hyperkalemia 4. HFpEF 5. Frequent falls 6. Supratherapeutic INR 7. Atrial fibrillation 8. DMT2 9. Hyperlipidemia 10. BPH 06/23 Renal function has worsened despite making very small amount of urine. 150 mls in past 48 hours. Patient is requesting hospice consult to go home. We will stop fluids. Cont to hold any nephrotoxic agents. Otherwise comfort measures only. He states his pain is relieved by the oral norco for now, although I've offered stronger options if needed. Family at bedside. We will keep him here until hospice can be arranged at home. 06/22 Patient still not interested in any procedures, we will respect that decision. He is agreeable to stay one more day for gentle hydration to see if any improve in renal function. Bladder scanner shows about 90 mls in over 24 hours. We will rediscuss hospice options tomorrow. 06/21 Discussed in detail with patient and two daughters present (including POA) the predicament he is in with his acute renal failure and pericardial effusion/pleural effusions. We discussed pericardiocentesis indications and he is not interested in this procedure. He does not want dialysis if indicated. He prefers to stay at this facility despite our limitations and lack of resources. We discussed gently hydrating overnight to see if his kidneys will respond and he will start making urine. However, this could complicate his pericardial effusion and cause tamponade, respiratory failure, and even . Also suspect that his renal function is less likely just dehydration, and more likely multifactoral and a result of his pericardial effusion, hypotension, etc. He and daughters understand this. He is a DNR. If he were to go into tamponade or being in any distress, they would like for comfort measures to be initiated at that time. Prognosis: Guarded, poor Review Statement Review Statement: I have personally discussed and reviewed the patient's visit/currently labs/imaging/decision making with Dr. Huddleston, my supervising attending. Greater that 50 minutes spent with patient, 50% of the time spent with this patient was devoted to counseling and coordination of care.
[2023-06-23] MEDS: COLACE PO PRN (13:43)
[2023-06-23 18:23] VITALS: RESP 16
[2023-06-24 05:17] VITALS: BP 123/64; PULSE 69; TEMP 97
--- NOTE | 2023-06-24 08:17 | DCSUM ---
Admission Date Admission Date: 06/21/23 Discharge Date Discharge Date: 06/24/23 Admission Diagnosis Admission Diagnosis: 1. Acute renal failure with azotemia and anuria Discharge Diagnosis Discharge Diagnosis: 1. Acute renal failure with azotemia and anuria 2. Pericardial effusion with hypotension 3. Hyperkalemia 4. HFpEF 5. Frequent falls 6. Supratherapeutic INR 7. Atrial fibrillation 8. DMT2 9. Hyperlipidemia 10. BPH Hospital Provider Hospital Provider: ANA MENDEZ [facility], [facility] Primary Care Physician Primary Care Physician: SERGO AGUDELO MD Summary of History and Physical Summary of History and Physical: Patient is an 87 year old male from home with pmhx of CKD, depression, chronic anticoagulation on warfarin, hx of CVA, DMT2, COPD, CHF, hypertension, a fib who presented to the ER for frequent falls and low blood pressure as directed by his PCP. Patient hasn't been drinking much lately. He takes multiple diuretics. He states he fell at home and has multiple skin tears. In the ER he was found to have a Cr of 7.5 (baseline 2) and BUN 70. He was offered transfer, [facility] are full. He ultimately decided with his daughter/POA that he did not want to be transferred. He and daughter understand the limitations of this facility regarding his renal function. Patient was started on fluids and admitted to med surg. Once on the floor ct a/p was ordered to r/o obstructive pathology. It showed large pericardial effusion, pleural effusions, mild ascites but no obstructive renal pathology. Hospital Course Subjective: Family did not want any aggressive measures. Patient declined transfer for specialty consult or consideration of any procedures including dialysis, pericardiocentesis. They simply wanted to try gentle hydration to see if his renal function would improve. It however continued to decline. He has made very little urine in last 3 days. 06/23 patient decided he was ready to go home on hospice. Daughters were supportive of this decision. He was kept til morning of 06/24 so the home could be set up and hospice could be present. He was discharged home on hospice today. Appearance: Pleasant and Other (+more lethargic today, not as talkative, struggling to eat his breakfast with daughter at his side. ) HEENT: Supple CVS: Other (+distant heart sounds ) Abdomen: Soft, Non-Tender and No Distention Respiratory: Other (+breathing becoming mildly labored ) Extremities: No Edema Vital Signs: Most Recent Vital Signs Temperature 97 F L 06/24/23 05:16 Temperature Source Temporal Artery Scan 06/24/23 05:16 Temperature Source Infrared 06/21/23 09:41 Pulse Rate 69 06/24/23 05:16 Respiratory Rate 16 06/24/23 05:16 Blood Pressure 123/64 06/24/23 05:16 Blood Pressure Mean 83 06/24/23 05:16 Blood Pressure Left Arm 77/53 06/21/23 13:35 Blood Pressure Location Left Arm 06/24/23 05:16 Blood Pressure Position Supine 06/24/23 05:16 O2 Sat by Pulse Oximetry 94 L 06/24/23 05:16 Oxygen Delivery Method Room Air 06/24/23 07:44 Height 6 ft 06/22/23 23:08 Weight 201 lb 3 oz 06/22/23 23:08 Telemetry Type Remote Telemetry 06/24/23 07:00 Telemetry Monitoring Continues 06/24/23 07:00 Irregular Telemetry Rate (Approximate) 50-60 BPM 06/24/23 07:00 Telemetry Heart Rate 62 06/21/23 13:00 EKG QRS Interval 0.06 06/24/23 07:00 Telemetry Strip Reading AFIB 06/24/23 07:00 Imaging: EXAMINATION: HEAD CT WITHOUT CONTRAST HISTORY: Fall. Altered mental status. TECHNIQUE: Noncontrast CT of the brain was performed with images acquired from skull base to vertex. 2-D coronal and sagittal reformatted images were obtained from the axial source images. Contrast Dose: None. CT Dose Reduction Techniques Performed: Yes. COMPARISON: The 03/18/2023 FINDINGS: Topogram demonstrates no significant abnormality. Intraparenchymal hemorrhage: None. Parenchyma: Normal carbajal-white differentiation. No mass effect or midline shift. Chronic: Decreased attenuation of the periventricular white matter consistent with microangiopathic ischemic change. Extra-axial spaces and basal cisterns: Normal. Ventricles: Enlargement of the ventricles and subarachnoid spaces consistent with atrophy. Paranasal sinuses and mastoid air cells: Visualized portions of paranasal sinuses are clear. Mastoid air cells are clear. Orbits: Normal visualized portions. Sella/Skull Base: Normal. Other: Scalp and visualized soft tissues are normal. Calvarium is normal. IMPRESSION: 1. No acute intracranial process. 2. 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 \ EXAM: CHEST RADIOGRAPH TECHNIQUE: Single frontal chest radiograph. COMPARISON: 05/16/2021 HISTORY: Hypotension FINDINGS: The heart and mediastinum are stable. A small right greater than left pleural effusions are identified, with adjacent compressive atelectasis. No pneumothorax. No acute abnormality of the bones or soft tissues is identified. IMPRESSION: New small pleural effusions are identified, with bibasilar atelectasis. EXAM: CHEST CT WITHOUT CONTRAST TECHNIQUE: CT acquisition of the chest from the thoracic inlet to the upper abdomen without IV contrast administration. 2-D coronal and sagittal reformatted images were obtained from the axial source images. IV Contrast: None. CT Dose Reduction Techniques Performed: Yes. COMPARISON: 03/18/2023 HISTORY: Congestive heart failure FINDINGS: CHEST: Lung Parenchyma and Airways: Bilateral compressive atelectasis is noted. No suspicious mass or consolidation. Pleural Space: Small to moderate layering pleural effusions are identified. No pneumothorax. Mediastinum: A moderate pericardial effusion is noted. The great vessels appear within normal limits. Lymph Nodes: No enlarged lymph nodes. Bones and Soft Tissues: There is no acute fracture, lytic lesion, or blastic lesion. Upper Abdomen: The liver surface appears mildly nodular. Trace perihepatic ascites is identified. IMPRESSION: 1. A moderate pericardial effusion and small to moderate layering pleural effusions are identified, consistent with serositis. 2. The liver surface appears mildly nodular. Correlation with liver enzymes for chronic liver disease is recommended. EXAM: CT ABDOMEN PELVIS WITHOUT INTRAVENOUS CONTRAST 06/21/2023. SAGITTAL AND CORONAL REFORMATTED IMAGES OBTAINED HISTORY: Acute renal failure COMPARISON: 03/18/2023 FINDINGS: There has been interval development of a large pericardial effusion. Further evaluation would be of benefit. Moderate bilateral pleural effusions partially visualized. Bibasilar consolidation may represent atelectasis and/or pneumonia. The liver shows no acute abnormality. Gallbladder has been removed. The adrenal glands and kidneys show no acute abnormality. There is no hydronephrosis. The spleen and pancreas show no acute abnormality. There is no bowel obstruction. Normal appendix. Extensive perivesicular stranding. Correlate clinically for cystitis. Diffuse mesenteric edema. Small quantity abdominal and pelvic ascites. Diffuse subcutaneous edema. No acute osseous abnormality. IMPRESSION: 1. Interval development of large pericardial effusion. Further evaluation would be of benefit. 2. Partially visualized moderate bilateral pleural effusions 3. Bilateral dependent consolidation may represent atelectasis and/or pneumonia. 4. Small quantity of abdominal and pelvic ascites. 5. Diffuse mesenteric and subcutaneous edema. 6. Status post cholecystectomy. 7. No urinary or bowel obstruction and normal appendix 8. Extensive perivesicular stranding. Correlate for cystitis. Discharge Instructions Discharge Planning: Discharge Planning > [address] Alek Agudelo. Discharge Medications: Medications at Discharge (Home Meds & RX) spironolactone 25 mg tablet 25 mg PO Q OTHER DAY #45 tabs 11/13/22 epinephrine 0.3 mg/0.3 mL injection, auto-injector 0.3 mg (0.3 mL) IM ONCE PRN hypersensitivity reaction #2 ea 12/25/22 atorvastatin 20 mg tablet (Lipitor) 20 mg PO BEDTIME #90 tabs 02/12/23 warfarin 4 mg tablet 4 mg PO 6XW #90 tabs 02/12/23 escitalopram oxalate 20 mg tablet (Lexapro) 20 mg PO QDAY #90 tabs 03/01/23 benazepril 40 mg tablet 40 mg PO QDAY 04/26/23 digoxin 125 mcg (0.125 mg) tablet 0.125 mg PO QDAY 04/26/23 finasteride 5 mg tablet 5 mg PO QDAY 04/26/23 gabapentin 300 mg capsule 300 mg PO QDAY 04/26/23 memantine 10 mg tablet (Namenda) 10 mg PO QHS #30 tabs 04/26/23 tamsulosin 0.4 mg capsule 0.4 mg PO QDAY 04/26/23 furosemide 20 mg tablet 20 mg PO QDAY #90 tabs 05/21/23 hydrocodone 5 mg-acetaminophen 325 mg tablet 1 tab PO BID PRN pain #60 tabs 05/21/23 donepezil 10 mg tablet See Rx Instructions .Route .COMPLEX #90 tabs 06/18/23 Discharge Plan Discharge Discharge Orders: Discharge Patient (ONCE); Ordered 06/24/23 Ordered By: ANA MENDEZ Activity Restrictions/Additional Instructions: DISCHARGE HOME TO HOSPICE DX: ACUTE RENAL FAILURE, PERICARDIAL EFFUSION Patient Disposition: DISCHARGED TO HOSPICE -HOME Prescriptions: Continued atorvastatin [Lipitor] 20 mg tablet 20 mg PO BEDTIME Qty: 90 1RF escitalopram oxalate [Lexapro] 20 mg tablet 20 mg PO QDAY Qty: 90 1RF hydrocodone-acetaminophen 5-325 mg tablet 1 tab PO BID PRN (Reason: pain) Qty: 60 0RF donepezil 10 mg tablet See Rx Instructions .ROUTE .COMPLEX Qty: 90 1RF Dose Instruction: TAKE 1 TABLET BY MOUTH DAILY Rx Instructions: TAKE 1 TABLET BY MOUTH DAILY digoxin 125 mcg (0.125 mg) tablet 0.125 mg PO QDAY Rx Instructions: Take 1 Tablet Sunday, Sunday, Sunday, and Sunday finasteride 5 mg tablet 5 mg PO QDAY gabapentin 300 mg capsule 300 mg PO QDAY tamsulosin 0.4 mg capsule 0.4 mg PO QDAY memantine [Namenda] 10 mg tablet 10 mg PO QHS Qty: 30 2RF Discontinued spironolactone 25 mg tablet 25 mg PO Q OTHER DAY Qty: 45 1RF warfarin 4 mg tablet 4 mg PO 6XW Qty: 90 1RF furosemide 20 mg tablet 20 mg PO QDAY Qty: 90 1RF benazepril 40 mg tablet 40 mg PO QDAY No Action epinephrine 0.3 mg/0.3 mL auto-injector 0.3 mg IM ONCE PRN (Reason: hypersensitivity reaction) Qty: 2 0RF Did you review [place] [employer] for ALL controlled substances?: Not Applicable Discussed opioids are addictive and Narcan is available by prescription or from pharmacy.: No Condition: Poor
== END 2023-06-24 08:40 | disposition hospice, home (50) | DRG 682 ==
LOC: ED 09:38 → MEDSURG B 12:55
PROVIDERS: ADMIT Hospitalist; ATTEND Physician Assistant
DX: I31.39 Other pericardial effusion (noninflammatory); I95.9 Hypotension, unspecified; J91.8 Pleural effusion in other conditions classified elsewhere; Z87.891 Personal history of nicotine dependence; J98.11 Atelectasis; I50.33 Acute on chronic diastolic (congestive) heart failure; N17.9 Acute kidney failure, unspecified; R53.1 Weakness; I48.91 Unspecified atrial fibrillation; R51.9 Headache, unspecified; R18.8 Other ascites; R29.6 Repeated falls; R60.0 Localized edema; E11.22 Type 2 diabetes mellitus with diabetic chronic kidney disease; R34 Anuria and oliguria; N18.9 Chronic kidney disease, unspecified; N40.0 Benign prostatic hyperplasia without lower urinary tract symptoms; I67.82 Cerebral ischemia; Z90.49 Acquired absence of other specified parts of digestive tract; I11.0 Hypertensive heart disease with heart failure; Z20.822 Contact with and (suspected) exposure to COVID-19; E87.5 Hyperkalemia; F32.A Depression, unspecified; Z79.01 Long term (current) use of anticoagulants; E78.5 Hyperlipidemia, unspecified